=== PATIENT | female | born 1980 | race Caucasian/White ===

== ENCOUNTER 2017-02-09 12:31 | Emergency (ER) | payer MEDICAID, OTHER ==
[~2017-02-09] VITALS: Ht 167.6 cm; Wt 78.0 kg
[2017-02-09] MEDS ORDERED: IOHEXOL 350 MG/ML 150 ML (OMNIPAQUE 350) VIAL IV ONE (13:00)
[2017-02-09] MEDS ORDERED: NS 100 ML (IVPB) BAG IV ONE (13:00)
--- NOTE | 2017-02-09 13:05 | ED General ---
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 She's been incarcerated for approximately the last 4 months and [place], [place]. She most recently has been in [place] [facility]. She was initially treated with request for the PEs. She recently was switched to Coumadin and her labs were followed at the correction. She was on Coumadin 2.5 mg by mouth. She has not had a dose of her Coumadin since 02/07/17 and reports her last INR was 1.4. She is now released from correction and will [facility] staying [facility] [place]. She does not have a local health care provider at this time. Patient is anxious because of her past history of a PE and pneumonia about a possible recurrence. Timing/Duration: 12-24 Hours Severity: Mild Allergies and Home Medications Allergies Coded Allergies: cephalexin (Verified Allergy, Mild, 02/09/17) Home Medications Warfarin Sodium 5 Mg Tablet, 5 MG PO DAILY, #3 Ref 0 Prescribed by: LUCILA BERNSTEIN on 02/09/17 6166 Constitutional: no symptoms reported, see HPI EENTM: no symptoms reported, see HPI Respiratory: see HPI, short of breath, other (tightness, right sided upper lobes) Cardiovascular: no symptoms reported, see HPI Gastrointestinal: no symptoms reported, see HPI Genitourinary: no symptoms reported, see HPI : No (tubal ligation) Musculoskeletal: no symptoms reported, see HPI Skin: no symptoms reported, see HPI Psychiatric/Neurological: No Symptoms Reported, See HPI Hematologic/Lymphatic: No Symptoms Reported, See HPI Immunological/Allergic: no symptoms reported, see HPI All Other Systems Reviewed Negative Unless Noted: Yes Past Hjlitsm-Yzzgug-Ooznuk Hx Patient Social History Recent Foreign Travel: No Contact w/Someone Who Travel: No Reviewed Nursing Assessment Reviewed/Agree w Nursing PMH: Yes Physical Exam Vital Signs Vital Sign - Last 12Hours 02/09/17 13:00 Temp 98.1 Pulse 101 Resp 20 B/P (MAP) 155/90 Pulse Ox 99 O2 Delivery Room Air Capillary Refill : General Appearance: No Apparent Distress, WD/WN Eyes: Bilateral Eye EOMI, Bilateral Eye Normal Inspection, Bilateral Eye PERRL HEENT: PERRL/EOMI, TMs Normal, Normal ENT Inspection, Pharynx Normal Neck: Full Range of Motion, Normal Inspection, Non Tender Respiratory: Chest Non Tender, Lungs Clear, Normal Breath Sounds, No Respiratory Distress Cardiovascular: Regular Rate, Rhythm, No Edema, No Murmur, Normal Peripheral Pulses Gastrointestinal: Normal Bowel Sounds, No Organomegaly, Non Tender, Soft Extremity: Normal Capillary Refill, Normal Inspection, Normal Range of Motion, No Calf Tenderness, No Pedal Edema Neurologic/Psychiatric: Alert, Oriented x3, No Motor/Sensory Deficits, Normal Mood/Affect Skin: Normal Color, Warm/Dry Lymphatic: No Adenopathy Progress/Results/Core Measures Results/Orders Lab Results Laboratory Tests Test 02/09/17 13:07 02/09/17 14:17 Range/Units White Blood Count 8.0 4.3-11.0 10^3/uL Red Blood Count 4.43 4.35-5.85 10^6/uL Hemoglobin 13.5 11.5-16.0 G/DL Hematocrit 40 35-52 % Mean Corpuscular Volume 90 80-99 FL Mean Corpuscular Hemoglobin 31 25-34 PG Mean Corpuscular Hemoglobin Concent 34 32-36 G/DL Red Cell Distribution Width 15.9 H 10.0-14.5 % Platelet Count 218 130-400 10^3/uL Mean Platelet Volume 10.2 7.4-10.4 FL Neutrophils (%) (Auto) 68 42-75 % Lymphocytes (%) (Auto) 21 12-44 % Monocytes (%) (Auto) 10 0-12 % Eosinophils (%) (Auto) 1 0-10 % Basophils (%) (Auto) 0 0-10 % Neutrophils # (Auto) 5.4 1.8-7.8 X 10^3 Lymphocytes # (Auto) 1.7 1.0-4.0 X 10^3 Monocytes # (Auto) 0.8 0.0-1.0 X 10^3 Eosinophils # (Auto) 0.1 0.0-0.3 10^3/uL Basophils # (Auto) 0.0 0.0-0.1 10^3/uL Prothrombin Time 16.6 H 12.2-14.7 SEC INR Comment 1.4 0.8-1.4 Activated Partial Thromboplast Time 34 24-35 SEC Urine Color YELLOW Urine Clarity CLEAR Urine pH 7 5-9 Urine Specific [place] 1.010 L 1.016-1.022 Urine Protein 1+ H NEGATIVE Urine Glucose (UA) NEGATIVE NEGATIVE Urine Ketones NEGATIVE NEGATIVE Urine Nitrite NEGATIVE NEGATIVE Urine Bilirubin NEGATIVE NEGATIVE Urine Urobilinogen NORMAL NORMAL MG/DL Urine Leukocyte Esterase NEGATIVE NEGATIVE Urine RBC (Auto) 1+ H NEGATIVE Urine RBC NONE /HPF Urine WBC NONE /HPF Urine Squamous Epithelial Cells 5-10 /HPF Urine Crystals NONE /LPF Urine Bacteria NEGATIVE /HPF Urine Casts NONE /LPF Urine Mucus NEGATIVE /LPF Urine Culture Indicated NO Urine Opiates Screen NEGATIVE NEGATIVE Urine Oxycodone Screen NEGATIVE NEGATIVE Urine Methadone Screen NEGATIVE NEGATIVE Urine Propoxyphene Screen NEGATIVE NEGATIVE Urine Barbiturates Screen NEGATIVE NEGATIVE Ur Tricyclic Antidepressants Screen NEGATIVE NEGATIVE Urine Phencyclidine Screen NEGATIVE NEGATIVE Urine Amphetamines Screen NEGATIVE NEGATIVE Urine Methamphetamines Screen NEGATIVE NEGATIVE Urine Benzodiazepines Screen NEGATIVE NEGATIVE Urine Cocaine Screen NEGATIVE NEGATIVE Urine Cannabinoids Screen NEGATIVE NEGATIVE My Orders Orders - DAY,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 Cbc No Diff (02/09/17 12:53) Cbc With Automated Diff (02/09/17 12:53) Protime With Inr (02/09/17 12:53) Partial Thromboplastin Time (02/09/17 12:53) Ua Culture If Indicated (02/09/17 12:53) Ct Angio Chest W (02/09/17 12:53) Saline Lock/Iv-Start (02/09/17 12:53) Iohexol Injection (Omnipaque 350 Mg/Ml 1 (02/09/17 13:00) Ns (Ivpb) (Sodium Chloride 0.9% Ivpb Bag (02/09/17 13:00) Ekg Tracing (02/09/17 13:22) Warfarin Tablet (Coumadin Tablet) (02/09/17 13:45) Drug Screen Stat (Urine) (02/09/17 14:18) Medications Given in ED Current Medications Medications Dose Ordered Sig/Ayesha Route Start Time Stop Time Status Last Admin Dose Admin Iohexol 150 ml ONCE ONCE IV 02/09/17 13:00 02/09/17 13:02 DC 02/09/17 13:12 125 ML Sodium Chloride 100 ml ONCE ONCE IV 02/09/17 13:00 02/09/17 13:02 DC 02/09/17 13:12 80 ML Warfarin Sodium 5 mg ONCE ONCE PO 02/09/17 13:45 02/09/17 13:46 DC 02/09/17 14:12 5 MG Vital Signs/I&O Vital Sign - Last 12Hours 02/09/17 13:00 Temp 98.1 Pulse 101 Resp 20 B/P (MAP) 155/90 Pulse Ox 99 O2 Delivery Room Air Progress Note : Time: 12:45 Progress Note Initial evaluation completed, with the patient's past history and concerns a CT /angiography was ordered of the chest. Labs will be completed, CBC, urine drug screen, UA, CMP, PT, INR, PTT and EKG. [address] angiography with the patient explaining that everything was normal at this point with no evidence of acute PE or pneumonia. Her INR is 1.4 and PTT is 16.6. Recommended resuming Coumadin 5 mg by mouth for 3 days, and then having a lab draw at [facility]. She verbalized understanding and agreement with this treatment plan. UA and UDS negative. ECG Initial ECG Impression Date: Feb 09, 2017 Initial ECG Impression Time: 13:27 Initial ECG Rate: 83 Initial ECG Rhythm: Normal Sinus Initial ECG Intervals: Normal Initial ECG Intervals WI 184, QRS T 98, QT 384, QTc 452. [place] P 33, QRS 85, T 35. Initial ECG Comparisson: No Previous ECG Available Comment Reviewed with Dr. Brooke who agreed with interpretation. Diagnostic Imaging Diagonstic Imaging: CT Plain Films/CT/US/NM/MRI: chest Comments NAME: RICHA NORTON [facility] REC#: [id number] PT STATUS: REG ER : 1980 PHYSICIAN: LUCILA BERNSTEIN ADMIT DATE: 02/09/17/ER Draft Date of Exam:02/09/17 CT ANGIO CHEST W PROCEDURE: CT angiography of the chest with contrast. TECHNIQUE: Multiple contiguous axial images were obtained through the chest after uneventful bolus administration of intravenous contrast. Reconstructed CTA MIP acquisitions were also performed. INDICATION: Shortness of breath. COMPARISON: There are no previous studies available for comparison. Reportedly, the patient has had a pulmonary embolus in the past. There is no defect within the pulmonary arteries to indicate a pulmonary embolus. The aorta is not abnormally dilated and there is no sign of a dissection. The heart size is within normal limits. The lungs are clear. There is no evidence for failure, pneumonia or for a pleural effusion. There are a few strands of increased density in the right lower lobe. These may secondary to chronic atelectasis and/or scar summation. There is no mediastinal or hilar adenopathy. The thyroid gland is not enlarged. Bone windows show no sign of a fracture or of a destructive lesion. The sections through the upper abdomen fail to show any evidence for an acute abnormality. There is no obvious breast mass. IMPRESSION: There is no for evidence for an acute cardiopulmonary abnormality. In particular, there is no sign of a pulmonary embolus or of a dissection. Dictated on workstation # [id number] Dict: 02/09/17 1327 Trans: 02/09/17 1339 [facility] [id number] Interpreted by: KAT SEWELL MD Electronically signed by: Reviewed: Reviewed by Me Departure Impression Impression: Primary Impression: Anticoagulation management encounter Additional Impression: Chest tightness or pressure Disposition: HOME, SELF-CARE Condition: Improved Departure-Patient Inst. Decision time for Depature: 13:30 Referrals: NO,LOCAL PHYSICIAN (PCP/Family) Primary Care Physician Patient Instructions: Anti-Clotting Medicines: Warfarin (Coumadin), Pulmonary Embolism (Blood Clot in the Lungs) (DC) Add. Discharge Instructions: All discharge instructions reviewed with patient and/or family. Voiced understanding. Call [facility] [phone] on Saturday for a follow-up appointment and have labs checked. Take Coumadin 5 mg by mouth for 2 days and then follow-up on dosage based on labs. Return to emergency department for chest pain, difficulty breathing, chest tightness, or any other concerns. Scripts Warfarin Sodium (Coumadin) 5 Mg Tablet 5 MG PO DAILY, #3 TAB 0 Refills Prov: LUCILA BERNSTEIN 02/09/17 Work/School Note: Local Medical Staff Listing LUCILA BERNSTEIN Feb 09, 2017 13:05
[2017-02-09 13:16] LABS: BASOPHILS % (AUTO) 0 % (0-10); EOSINOPHILS # (AUTO) 0.1 10^3/uL (0.0-0.3); EOSINOPHILS % (AUTO) 1 % (0-10); LYMPHOCYTES # (AUTO) 1.7 X 10^3 (1.0-4.0); LYMPHOCYTES % (AUTO) 21 % (12-44); MEAN CORPUSCULAR HEMOGLOBIN 31 PG (25-34); MEAN CORPUSCULAR HGB CONC 34 G/DL (32-36); MEAN CORPUSCULAR VOLUME 90 FL (80-99); MEAN PLATELET VOLUME 10.2 FL (7.4-10.4); MONOCYTES # (AUTO) 0.8 X 10^3 (0.0-1.0); MONOCYTES % (AUTO) 10 % (0-12); NEUTROPHILS # (AUTO) 5.4 X 10^3 (1.8-7.8); NEUTROPHILS % (AUTO) 68 % (42-75); PLATELET COUNT 218 10^3/uL (130-400); RED BLOOD COUNT 4.43 10^6/uL (4.35-5.85); RED CELL DISTRIBUTION WIDTH 15.9 % (10.0-14.5)
[2017-02-09 13:26] LABS: INR 1.4 (0.8-1.4); PROTHROMBIN TIME PATIENT 16.6 SEC (12.2-14.7)
--- NOTE | 2017-02-09 13:40 | Diagnostic Imaging Report ---
PROCEDURE: CT angiography of the chest with contrast. TECHNIQUE: Multiple contiguous axial images were obtained through the chest after uneventful bolus administration of intravenous contrast. Reconstructed CTA MIP acquisitions were also performed. INDICATION: Shortness of breath. COMPARISON: There are no previous studies available for comparison. Reportedly, the patient has had a pulmonary embolus in the past. There is no defect within the pulmonary arteries to indicate a pulmonary embolus. The aorta is not abnormally dilated and there is no sign of a dissection. The heart size is within normal limits. The lungs are clear. There is no evidence for failure, pneumonia or for a pleural effusion. There are a few strands of increased density in the right lower lobe. These may secondary to chronic atelectasis and/or scar summation. There is no mediastinal or hilar adenopathy. The thyroid gland is not enlarged. Bone windows show no sign of a fracture or of a destructive lesion. The sections through the upper abdomen fail to show any evidence for an acute abnormality. There is no obvious breast mass. IMPRESSION: There is no for evidence for an acute cardiopulmonary abnormality. In particular, there is no sign of a pulmonary embolus or of a dissection. Dictated by: Dictated on workstation # [id number]
[2017-02-09] MEDS ORDERED: warFARin 5 MG (COUMADIN) TAB PO ONE (13:45)
[2017-02-09] MEDS ORDERED: WARF5TAB PO (13:56)
[2017-02-09 14:24] LABS: BILIRUBIN,URINE NEGATIVE (NEGATIVE); KETONES,URINE NEGATIVE (NEGATIVE); LEUKOCYTE ESTERASE ,URINE NEGATIVE (NEGATIVE); NITRITE,URINE NEGATIVE (NEGATIVE); PH,URINE 7 (5-9); PROTEIN,URINE 1+ (NEGATIVE); UROBILINOGEN,URINE NORMAL (NORMAL)
[2017-02-09 14:40] VITALS: BP 155/90
== END 2017-02-09 14:40 | disposition home or self-care (01) ==
LOC: ER 12:35
DX: Z51.81 Encounter for therapeutic drug level monitoring (principal); Z79.01 Long term (current) use of anticoagulants; Z86.711 Personal history of pulmonary embolism
CPT/HCPCS: 36415; 71275; 80306; 81000; 85025; 85610; 85730; 93005

== ENCOUNTER 2017-04-24 09:13 | Emergency (ER) | payer MEDICAID ==
[~2017-04-24] VITALS: Ht 167.6 cm; Wt 78.0 kg
[~2017-04-24 09:13] MED LIST: WARF5TAB PO
--- NOTE | 2017-04-24 09:28 | ED Abdominal Pain ---
General Chief Complaint: Abdominal/GI Problems Stated Complaint: ABD PAIN Source of Information: Patient History of Present Illness Time Seen By Provider: 09:25 Initial Comments PT ARRIVES VIA POV C/O HERNIA PAIN AND SWELLING SINCE 2029 LAST PM--BEGAN AT WORK AT [employer] LAST NIGHT C/O CRAMPING TO MID ABDOMEN AROUND UMBILICAL HERNIA--PAIN COMES AND GOES. NOTHING WORSENS OR IMPROVES PAIN C/O NAUSEA, NO VOMITING HAS HAD DIARRHEA X 2 THIS AM NO URINARY SYMPTOMS NO FEVER HAS HAD SIMILAR BEFORE AND STATES "THEY JUST PUSHED IT BACK IN" PT TOOK IBUPROFEN 800 MG THIS AM WITHOUT RELIEF PCP: [facility] Allergies and Home Medications Allergies Coded Allergies: cephalexin (Verified Allergy, Mild, 02/09/17) Home Medications Warfarin Sodium 5 Mg Tablet, 5 MG PO DAILY, #3 Ref 0 Prescribed by: LUCILA BERNSTEIN on 02/09/17 1356 Review of Systems Constitutional: no symptoms reported Respiratory: No Symptoms Reported Cardiovascular: No Symptoms Reported Gastrointestinal: See HPI, Abdominal Pain, Diarrhea, Nausea, Denies Vomiting Genitourinary: No Symptoms Reported Musculoskeletal: no symptoms reported Skin: no symptoms reported Psychiatric/Neurological: No Symptoms Reported Endocrine: No Symptoms Reported Hematologic/Lymphatic: No Symptoms Reported Past Rimcgwh-Ozgcqc-Lexvds Hx Patient Social History Recreational Drug Use: Yes Drug of Choice: HEROIN Smoking Status: Current Everyday Smoker Type Used: Cigarettes 2nd Hand Smoke Exposure: No Recent Foreign Travel: No Contact w/Someone Who Travel: No Recent Hopitalizations: No Seasonal Allergies Seasonal Allergies: No Surgeries HX Surgeries: Yes (SUREGERY FOR "OSTEOMYELYTIS OF SPINE"--HAS PLATES AND SCREWS IN SPINE ( ANTERIOR APPROACH)) Surgeries: Orthopedic, Tubal Ligation Respiratory Hx Respiratory Disorders: Yes (BILATERAL P.E.'S 09/2016--NOW ON ELIQUIS--PT DOES NOT KNOW SOURCE/CAUSE FOR P.E.'S ) Respiratory Disorders: Pulmonary Embolism Cardiovascular Hx Cardiac Disorders: Yes (BILATERAL P.E'S 09/2016) Neurological Hx Neurological Disorders: No Reproductive System : No 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 Genitourinary Hx Genitourinary Disorders: No Gastrointestinal Hx Gastrointestinal Disorders: No Musculoskeletal Hx Musculoskeletal Disorders: Yes (OSTEOMYELITIS OF SPINE) Endocrine Hx Endocrine Disorders: No HEENT HX ENT Disorders: No Cancer Hx Cancer: No Psychosocial Hx Psychiatric Problems: Yes (SUBSTANCE ABUSE) Integumentary HX Skin/Integumentary Disorder: No Blood Transfusions Hx Blood Disorders: No Adverse Reaction to a Blood Tr: No Physical Exam Vital Signs VS - Last 72 Hours, by Label 04/24/17 09:16 Temp 98.3 Pulse 110 Resp 18 B/P (MAP) 127/92 Capillary Refill : General Appearance: WD/WN, no apparent distress, other (CONSTANT MOVEMENTS OF BODY AND MOUTH, TALKS NON-STOP. PT DRINKING WATER ON ARRIVAL. ) HEENT: PERRL/EOMI Neck: normal inspection Respiratory: normal breath sounds, no respiratory distress, no accessory muscle use Cardiovascular: regular rate, rhythm, no murmur Gastrointestinal: normal bowel sounds, soft, no organomegaly, no pulsatile mass , No distended, No guarding, No rebound, tenderness (PERIUMBILICAL ), hernia ( SMALL REDUCIBLE UMBILICAL HERNIA--TENDER TO PALPATION), No mass Extremities: normal inspection Back: normal inspection Neurologic/Psychiatric: supervisor roving II-XII nml as tested, no motor/sensory deficits, alert, oriented x 3 Skin: normal color, warm/dry, other (MULTIPLE SCARS TO FACE, ARMS, CHEST AND ABDOMEN FROM "PICKING" ) Progress/Results/Core Measures Results/Orders Lab Results Laboratory Tests Test 04/24/17 09:26 04/24/17 10:25 Range/Units Urine Color YELLOW Urine Clarity CLEAR Urine pH 7 5-9 Urine Specific [place] 1.010 L 1.016-1.022 Urine Protein NEGATIVE NEGATIVE Urine Glucose (UA) NEGATIVE NEGATIVE Urine Ketones NEGATIVE NEGATIVE Urine Nitrite NEGATIVE NEGATIVE Urine Bilirubin NEGATIVE NEGATIVE Urine Urobilinogen NORMAL NORMAL MG/DL Urine Leukocyte Esterase 1+ H NEGATIVE Urine RBC (Auto) NEGATIVE NEGATIVE Urine RBC NONE /HPF Urine WBC 0-2 /HPF Urine Squamous Epithelial Cells 5-10 /HPF Urine Crystals NONE /LPF Urine Bacteria TRACE /HPF Urine Casts NONE /LPF Urine Mucus NEGATIVE /LPF Urine Culture Indicated NO Urine Opiates Screen NEGATIVE NEGATIVE Urine Oxycodone Screen NEGATIVE NEGATIVE Urine Methadone Screen NEGATIVE NEGATIVE Urine Propoxyphene Screen NEGATIVE NEGATIVE Urine Barbiturates Screen NEGATIVE NEGATIVE Ur Tricyclic Antidepressants Screen NEGATIVE NEGATIVE Urine Phencyclidine Screen NEGATIVE NEGATIVE Urine Amphetamines Screen NEGATIVE NEGATIVE Urine Methamphetamines Screen NEGATIVE NEGATIVE Urine Benzodiazepines Screen NEGATIVE NEGATIVE Urine Cocaine Screen NEGATIVE NEGATIVE Urine Cannabinoids Screen NEGATIVE NEGATIVE White Blood Count 7.1 4.3-11.0 10^3/uL Red Blood Count 4.49 4.35-5.85 10^6/uL Hemoglobin 14.5 11.5-16.0 G/DL Hematocrit 42 35-52 % Mean Corpuscular Volume 94 80-99 FL Mean Corpuscular Hemoglobin 32 25-34 PG Mean Corpuscular Hemoglobin Concent 35 32-36 G/DL Red Cell Distribution Width 14.3 10.0-14.5 % Platelet Count 190 130-400 10^3/uL Mean Platelet Volume 10.3 7.4-10.4 FL Neutrophils (%) (Auto) 57 42-75 % Lymphocytes (%) (Auto) 28 12-44 % Monocytes (%) (Auto) 14 H 0-12 % Eosinophils (%) (Auto) 1 0-10 % Basophils (%) (Auto) 0 0-10 % Neutrophils # (Auto) 4.1 1.8-7.8 X 10^3 Lymphocytes # (Auto) 2.0 1.0-4.0 X 10^3 Monocytes # (Auto) 1.0 0.0-1.0 X 10^3 Eosinophils # (Auto) 0.1 0.0-0.3 10^3/uL Basophils # (Auto) 0.0 0.0-0.1 10^3/uL Prothrombin Time 12.2 12.2-14.7 SEC INR Comment 0.9 0.8-1.4 Activated Partial Thromboplast Time 29 24-35 SEC Sodium Level 138 135-145 MMOL/L Potassium Level 3.8 3.6-5.0 MMOL/L Chloride Level 109 H 98-107 MMOL/L Carbon Dioxide Level 19 L 21-32 MMOL/L Anion Gap 10 5-14 MMOL/L Blood Urea Nitrogen 16 7-18 MG/DL Creatinine 0.75 0.60-1.30 MG/DL Estimat Glomerular Filtration Rate > 60 BUN/Creatinine Ratio 21 H 0-20 Glucose Level 95 70-105 MG/DL Calcium Level 8.9 8.5-10.1 MG/DL Total Bilirubin 0.4 0.1-1.0 MG/DL Aspartate Amino Transf (AST/SGOT) 46 H 5-34 U/L Alanine Aminotransferase (ALT/SGPT) 64 H 0-55 U/L Alkaline Phosphatase 100 40-136 U/L Total Protein 7.0 6.4-8.2 GM/DL Albumin 3.5 3.2-4.5 GM/DL Amylase Level 39 25-125 U/L Lipase 31 8-78 U/L Serum Test, Qualitative NEGATIVE NEGATIVE My Orders Orders - OREN PARKERA Alessandro DO Saline Lock/Iv-Start (04/24/17 09:24) Amylase (04/24/17 09:24) Cbc With Automated Diff (04/24/17 09:24) Comprehensive Metabolic Panel (04/24/17 09:24) Hcg,Qualitative Serum (04/24/17 09:24) Lipase (04/24/17 09:24) Ua Culture If Indicated (04/24/17 09:24) Acute Abd Series (04/24/17 09:24) Protime With Inr (04/24/17 09:25) Partial Thromboplastin Time (04/24/17 09:25) Drug Screen Stat (Urine) (04/24/17 09:34) Iohexol Injection (Omnipaque 350 Mg/Ml 1 (04/24/17 09:45) Sodium Chloride Flush (Catheter Flush Sy (04/24/17 09:45) Ns (Ivpb) (Sodium Chloride 0.9% Ivpb Bag (04/24/17 09:45) Ct Abdomen/Pelvis Wo (04/24/17 ) Medications Given in ED Current Medications Medications Dose Ordered Sig/Ayesha Route Start Time Stop Time Status Last Admin Dose Admin Iohexol 100 ml ONCE ONCE IV 04/24/17 09:45 04/24/17 09:54 DC 04/24/17 10:55 100 ML Sodium Chloride 10 ml NEEDED PRN IV 04/24/17 09:45 04/24/17 10:55 10 ML Sodium Chloride 100 ml ONCE ONCE IV 04/24/17 09:45 04/24/17 09:54 DC 04/24/17 10:55 80 ML Vital Signs/I&O Vital Sign - Last 12Hours 04/24/17 09:16 Temp 98.3 Pulse 110 Resp 18 B/P (MAP) 127/[address] ABDOMEN/PELVIS--VENTRAL AND PERIUMBILICAL HERNIAS, ONE CONTAINING BOWEL LOOP , NO OBSTRUCTION OR STRANGULATION ACUTE ABDOMEN XRAYS--NO ACUTE PROCESS PER RADIOLOGIST REPORTS @ 1136 Reviewed: Reviewed by Me Departure Impression Impression: Primary Impression: Umbilical hernia Disposition: HOME, SELF-CARE Condition: Stable Departure-Patient Inst. Referrals: [facility] (PCP/Family) Primary Care Physician NAVIN HARPER DO Patient Instructions: Abdominal Hernia (DC), Umbilical Hernia, Adult Add. Discharge Instructions: LOTS OF FLUIDS--WATER, BROTH, JELLO, GATORADE FOLLOW UP WITH DR. HARPER, OR SURGEON OF CHOICE FOR FURTHER CARE All discharge instructions reviewed with patient and/or family. Voiced understanding. Scripts Ondansetron (Zofran Odt) 4 Mg Tab.rapdis 4 MG PO Q4H for Nausea/Vomiting, #10 TAB Prov: RYAN PARKER DO 04/24/17 Dicyclomine HCl (Bentyl) 10 Mg Capsule 10 MG PO Q6H Y for ABDOMINAL PAIN, #15 CAP Prov: RYAN PAKRER DO 04/24/17 RYAN PARKER DO Apr 24, 2017 09:28
[2017-04-24] MEDS ORDERED: CATHETER FLUSH 10 ML SYR IV PRN (09:45)
[2017-04-24] MEDS ORDERED: IOHEXOL 350 MG/ML 100 ML (OMNIPAQUE 350) VIAL IV ONE (09:45)
[2017-04-24] MEDS ORDERED: NS 100 ML (IVPB) BAG IV ONE (09:45)
[2017-04-24 09:48] LABS: BILIRUBIN,URINE NEGATIVE (NEGATIVE); KETONES,URINE NEGATIVE (NEGATIVE); LEUKOCYTE ESTERASE ,URINE 1+ (NEGATIVE); NITRITE,URINE NEGATIVE (NEGATIVE); PH,URINE 7 (5-9); PROTEIN,URINE NEGATIVE (NEGATIVE); UROBILINOGEN,URINE NORMAL (NORMAL)
[2017-04-24 10:06] LABS: WBC,URINE 0-2 /HPF
[2017-04-24 10:34] LABS: BASOPHILS % (AUTO) 0 % (0-10); EOSINOPHILS # (AUTO) 0.1 10^3/uL (0.0-0.3); EOSINOPHILS % (AUTO) 1 % (0-10); LYMPHOCYTES % (AUTO) 28 % (12-44); MEAN CORPUSCULAR HEMOGLOBIN 32 PG (25-34); MEAN CORPUSCULAR HGB CONC 35 G/DL (32-36); MEAN CORPUSCULAR VOLUME 94 FL (80-99); MEAN PLATELET VOLUME 10.3 FL (7.4-10.4); MONOCYTES % (AUTO) 14 % (0-12); NEUTROPHILS # (AUTO) 4.1 X 10^3 (1.8-7.8); NEUTROPHILS % (AUTO) 57 % (42-75); PLATELET COUNT 190 10^3/uL (130-400); RED BLOOD COUNT 4.49 10^6/uL (4.35-5.85); RED CELL DISTRIBUTION WIDTH 14.3 % (10.0-14.5); WHITE BLOOD COUNT 7.1 10^3/uL (4.3-11.0)
[2017-04-24 10:54] LABS: ALANINE AMINOTRANSFERASE 64 U/L (0-55); ALBUMIN 3.5 GM/DL (3.2-4.5); AMYLASE 39 U/L (25-125); ANION GAP 10 MMOL/L (5-14); ASPARTATE AMINO TRANSFERASE 46 U/L (5-34); BILIRUBIN,TOTAL 0.4 MG/DL (0.1-1.0); BLOOD UREA NITROGEN 16 MG/DL (7-18); BUN/CREATININE RATIO 21 (0-20); CALCIUM 8.9 MG/DL (8.5-10.1); CARBON DIOXIDE 19 MMOL/L (21-32); CHLORIDE 109 MMOL/L (98-107); CREATININE SERUM 0.75 MG/DL (0.60-1.30); GFR ESTIMATED > 60; GLUCOSE 95 MG/DL (70-105); LIPASE 31 U/L (8-78); POTASSIUM 3.8 MMOL/L (3.6-5.0); SODIUM 138 MMOL/L (135-145)
[2017-04-24 11:00] LABS: INR 0.9 (0.8-1.4); PROTHROMBIN TIME PATIENT 12.2 SEC (12.2-14.7)
--- NOTE | 2017-04-24 11:17 | Diagnostic Imaging Report ---
INDICATION: Abdominal pain midabdomen. PA chest, supine and upright abdominal images were obtained. There are postop changes from fusion of the spine from L4 to S1. There are some surgical george in the left lower abdomen. Bowel gas pattern is normal. There are no pathologic masses or calcifications. There is no intraperitoneal free air. Lungs are clear. IMPRESSION: No acute abnormalities in the abdomen. Dictated by: Dictated on workstation # [id number]
--- NOTE | 2017-04-24 11:31 | Diagnostic Imaging Report ---
PROCEDURE: CT abdomen and pelvis without contrast. TECHNIQUE: Multiple contiguous axial images were obtained through the abdomen and pelvis without the use of intravenous contrast. INDICATION: Abdominal pain and tenderness. This study was performed without intravenous contrast due to lack of IV access. FINDINGS: The lung bases demonstrate minimal bibasilar atelectasis. The liver, the spleen, the adrenal glands, and the pancreas appear grossly unremarkable for an unenhanced exam. There are no calcified gallstones. The kidneys demonstrate no hydronephrosis. No urinary tract stones are identified. Calcifications in the left side of the pelvis are likely related to phleboliths. The uterus and adnexa demonstrate no definite abnormality. Slight fullness in the left adnexa is probably related to ovarian follicles. There is no significant free fluid or fluid collection in the abdomen or pelvis. The appendix is not clearly seen through its entire course with a tubular structure probably representing part of the normal appendix seen in the right lower quadrant. No fluid collection or abscess. There are periumbilical and supraumbilical ventral hernias containing fat from the omentum in the supraumbilical hernia, and the left periumbilical hernia contains a small bowel loop without obstruction. The osseous structures demonstrate fusion changes involving L4 to S1 levels. IMPRESSION: Periumbilical and supraumbilical ventral hernias. One of the hernias contain a small bowel loop without obstruction or CT evidence of strangulation. Dictated by: Dictated on workstation # [id number]
[2017-04-24] MEDS ORDERED: DICY10CA59 PO (11:41)
[2017-04-24] MEDS ORDERED: ONDA4TAB8 PO (11:41)
[2017-04-24] MEDS ORDERED: KETOROLAC 60 MG/2 ML VIAL IM ONE (11:45)
[2017-04-24 12:10] VITALS: BP 100/84
== END 2017-04-24 12:10 | disposition home or self-care (01) ==
LOC: EDUNIT# 09:13 → ER 09:17
DX: K42.9 Umbilical hernia without obstruction or gangrene (principal); F17.210 Nicotine dependence, cigarettes, uncomplicated; Z79.01 Long term (current) use of anticoagulants; Z98.51 Tubal ligation status; Z86.711 Personal history of pulmonary embolism; Z32.02 Encounter for pregnancy test, result negative
CPT/HCPCS: 36415; 74022; 74176; 80053; 80306; 81000; 82150; 83690; 84703; 85025; 85610; 85730; 96372

== ENCOUNTER 2017-11-13 16:25 | Observation (INO) | payer SELFPAY ==
[~2017-11-13] VITALS: Ht 167.6 cm; Wt 76.0 kg
[~2017-11-13 16:25] MED LIST changes: +DICY10CA59 PO; +ONDA4TAB8 PO
[2017-11-13] MEDS ORDERED: KETOROLAC 30 MG/ML VIAL IVP STA (18:01)
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
[2017-11-13] MEDS ORDERED: CEFEPIME INJECTION 2,000 MG in NS (IVPB) 50 ML IV ONE (18:15)
[2017-11-13] MEDS ORDERED: ONDANSETRON 4 MG/2 ML (SDV) Z0FRAN IVP ONE (18:15)
[2017-11-13 18:21] LABS: CLARITY,URINE SLIGHTLY CLOUDY; COLOR,URINE AMBER; GLUCOSE, URINE (UA) NEGATIVE (NEGATIVE); KETONES,URINE 1+ (NEGATIVE); LEUKOCYTE ESTERASE ,URINE 2+ (NEGATIVE); NITRITE,URINE NEGATIVE (NEGATIVE); PH,URINE 6 (5-9); PROTEIN,URINE 2+ (NEGATIVE); UROBILINOGEN,URINE 8 MG/DL (NORMAL)
[2017-11-13 18:31] LABS: BILIRUBIN,URINE 2+ (NEGATIVE)
[2017-11-13 18:32] LABS: BACTERIA,URINE FEW /HPF
--- NOTE | 2017-11-13 19:11 | Diagnostic Imaging Report ---
INDICATION: Chest pain. COMPARISON: 04/24/2017. EXAMINATION: Single view of the chest was obtained. FINDINGS: Clear lungs, bilaterally. The heart is normal. No pneumothorax. The osseous structures are normal. IMPRESSION: Negative chest. Dictated by: Dictated on workstation # [id number]
[2017-11-13] MEDS ORDERED: LACTATED RINGERS 1,000 ML IV ONE (19:24)
[2017-11-13] MEDS ORDERED: fentaNYL INJECTION 100 MCG/2 ML AMP IVP ONE (19:30)
[2017-11-13 21:00] LABS: BASOPHILS % (AUTO) 0 % (0-10); EOSINOPHILS # (AUTO) 0.1 10^3/uL (0.0-0.3); EOSINOPHILS % (AUTO) 1 % (0-10); HEMATOCRIT 40 % (35-52); HEMOGLOBIN 13.9 G/DL (11.5-16.0); LYMPHOCYTES # (AUTO) 1.8 X 10^3 (1.0-4.0); LYMPHOCYTES % (AUTO) 16 % (12-44); MEAN CORPUSCULAR HEMOGLOBIN 34 PG (25-34); MEAN CORPUSCULAR HGB CONC 35 G/DL (32-36); MEAN CORPUSCULAR VOLUME 96 FL (80-99); MEAN PLATELET VOLUME 10.8 FL (7.4-10.4); MONOCYTES # (AUTO) 1.1 X 10^3 (0.0-1.0); MONOCYTES % (AUTO) 10 % (0-12); NEUTROPHILS # (AUTO) 8.1 X 10^3 (1.8-7.8); NEUTROPHILS % (AUTO) 73 % (42-75); PLATELET COUNT 199 10^3/uL (130-400); RED BLOOD COUNT 4.13 10^6/uL (4.35-5.85); RED CELL DISTRIBUTION WIDTH 13.7 % (10.0-14.5); WHITE BLOOD COUNT 11.1 10^3/uL (4.3-11.0)
[2017-11-13 21:03] LABS: INR 0.9 (0.8-1.4); PROTHROMBIN TIME PATIENT 12.3 SEC (12.2-14.7)
[2017-11-13 21:04] LABS: ALANINE AMINOTRANSFERASE 24 U/L (0-55); ALBUMIN 3.4 GM/DL (3.2-4.5); ALKALINE PHOSPHATASE 68 U/L (40-136); BILIRUBIN,TOTAL 0.7 MG/DL (0.1-1.0); BUN/CREATININE RATIO 18; CALCIUM 8.5 MG/DL (8.5-10.1); CARBON DIOXIDE 21 MMOL/L (21-32); CHLORIDE 103 MMOL/L (98-107); CREATININE SERUM 0.65 MG/DL (0.60-1.30); GFR ESTIMATED > 60; GLUCOSE 89 MG/DL (70-105); POTASSIUM 3.3 MMOL/L (3.6-5.0); SODIUM 138 MMOL/L (135-145); TOTAL PROTEIN 6.7 GM/DL (6.4-8.2)
[2017-11-13 22:56] VITALS: BP 107/61
[2017-11-13] MEDS ORDERED: NS W/KCL 20 MEQ/L 1,000 ML IV ONE (22:57)
[2017-11-13] MEDS ORDERED: HYDROcodone/APAP 5 MG/325 MG (LORTAB) TAB ONE (22:57)
[2017-11-13] MEDS: NS W/KCL 20 MEQ/L 1,000 ML IV SCH (23:05)
[2017-11-13] MEDS ORDERED: NICOTINE 14 MG (NICODERM) PATCH TD ONE (23:19)
[2017-11-13] MEDS ORDERED: ONDANSETRON 4 MG/2 ML (SDV) Z0FRAN IV PRN (23:45)
[2017-11-13] MEDS ORDERED: KETOROLAC 30 MG/ML VIAL IVP PRN (23:45)
[2017-11-14] MEDS: HYDROcodone/APAP 5 MG/325 MG (LORTAB) TAB PO PRN ×2 (03:42→13:26)
[2017-11-14 04:00] VITALS: BP 115/74
[2017-11-14] MEDS: NS W/KCL 20 MEQ/L 1,000 ML IV SCH ×2 (05:17→13:25)
[2017-11-14] MEDS: CEFEPIME INJECTION 1,000 MG in NS (IVPB) 50 ML IV SCH ×2 (05:17→13:25)
[2017-11-14] MEDS ORDERED: CATHETER FLUSH 10 ML SYR IV PRN (07:00)
[2017-11-14] MEDS ORDERED: INFLUENZA TRIvalent 2017-2018 0.5 ML/45 MCG SYR IM ONE (07:00)
[2017-11-14 07:53] LABS: BASOPHILS % (AUTO) 0 % (0-10); EOSINOPHILS # (AUTO) 0.2 10^3/uL (0.0-0.3); EOSINOPHILS % (AUTO) 3 % (0-10); HEMATOCRIT 37 % (35-52); HEMOGLOBIN 12.7 G/DL (11.5-16.0); LYMPHOCYTES # (AUTO) 1.3 X 10^3 (1.0-4.0); LYMPHOCYTES % (AUTO) 19 % (12-44); MEAN CORPUSCULAR HEMOGLOBIN 33 PG (25-34); MEAN CORPUSCULAR HGB CONC 34 G/DL (32-36); MEAN CORPUSCULAR VOLUME 97 FL (80-99); MEAN PLATELET VOLUME 10.8 FL (7.4-10.4); MONOCYTES # (AUTO) 0.5 X 10^3 (0.0-1.0); MONOCYTES % (AUTO) 7 % (0-12); NEUTROPHILS # (AUTO) 5.1 X 10^3 (1.8-7.8); NEUTROPHILS % (AUTO) 71 % (42-75); PLATELET COUNT 162 10^3/uL (130-400); RED BLOOD COUNT 3.81 10^6/uL (4.35-5.85); RED CELL DISTRIBUTION WIDTH 13.8 % (10.0-14.5); WHITE BLOOD COUNT 7.2 10^3/uL (4.3-11.0)
[2017-11-14 07:59] VITALS: BP 90/54
[2017-11-14 08:13] LABS: ALANINE AMINOTRANSFERASE 23 U/L (0-55); ALBUMIN 2.9 GM/DL (3.2-4.5); ALKALINE PHOSPHATASE 57 U/L (40-136); BILIRUBIN,TOTAL 0.5 MG/DL (0.1-1.0); BUN/CREATININE RATIO 23; CARBON DIOXIDE 22 MMOL/L (21-32); CHLORIDE 109 MMOL/L (98-107); CREATININE SERUM 0.71 MG/DL (0.60-1.30); GFR ESTIMATED > 60; GLUCOSE 155 MG/DL (70-105); POTASSIUM 3.7 MMOL/L (3.6-5.0); SODIUM 142 MMOL/L (135-145); TOTAL PROTEIN 5.8 GM/DL (6.4-8.2)
[2017-11-14] MEDS ORDERED: PREN-102 PO (08:41)
[2017-11-14] MEDS ORDERED: TRAZ-28 PO (08:41)
[2017-11-14] MEDS ORDERED: APIX5TAB PO ×2 (08:41→14:33)
[2017-11-14] MEDS ORDERED: GABA-488 PO (08:41)
[2017-11-14] MEDS ORDERED: CITA20TA12 PO (08:41)
[2017-11-14] MEDS ORDERED: NICOTINE 14 MG (NICODERM) PATCH TD SCH (09:00)
[2017-11-14 12:00] VITALS: BP 102/57
--- NOTE | 2017-11-14 13:10 | Diagnostic Imaging Report ---
EXAMINATION: Left fingers. INDICATION: Redness and swelling. FINDINGS: An AP view of the hand and two views of the left second digit were obtained. There are no prior studies available for comparison. There is no fracture, dislocation, or acute bony abnormality evident. There does seem to be mild generalized soft tissue edema about the phalanges of the second digit however. There is no radiopaque foreign body identified. IMPRESSION: 1. There is no evidence for an acute bony abnormality. 2. There is generalized soft tissue edema about the second digit. There is no radiopaque foreign body identified however. Dictated by: Dictated on workstation # [id number]
[2017-11-14] MEDS ORDERED: CEFD300C3 PO (14:33)
--- NOTE | 2017-11-14 14:36 | Discharge Instructions ---
Discharge [facility] Discharge Medications New, Converted or Re-Newed RX: Transmitted to Pharmacy New Medications: Cefdinir (Cefdinir) 300 Mg Capsule 300 MG PO BID, #20 CAP 0 Refills Continued Medications: Apixaban (Eliquis) 5 Mg Tablet 5 MG PO DAILY, #60 TAB 0 Refills (This prescription has been renewed) LAST RECEIVED #56 SAMPLES 17 Citalopram Hydrobromide (Celexa) 20 Mg Tablet 20 MG PO DAILY, TAB Gabapentin (Gabapentin) 300 Mg Capsule 300 MG PO TID PRN for NERVE PAIN, CAP LAST GIVEN #90 SAMPLES 08-15-17 Vits #93/Iron Fum/FA ( Formula Tablet) 1 Each Tablet 1 TAB PO DAILY, TAB Trazodone HCl (Trazodone HCl) 50 Mg Tablet 50-150 MG PO HS, TAB LAST GIVEN #90 SAMPLES 08-15-17 TAKES 1-3 (50MG) TABLETS Patient Instructions Goal/Follow Up Appt: Follow up with Dr. Marin on 11/21 at 1:40 pm. Follow up with [facility] as directed. Return to [facility] For: Fever, spreading redness, inability to keep down antibiotics Activity & Diet Discharge Diet: Regular Diet Copy Copies To 1: BALDOMERO MARIN MD, BETHANY N MD Nov 14, 2017 14:35
[2017-11-14 16:00] VITALS: BP 107/74
[2017-11-14 16:40] VITALS: BP 107/74
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
== END 2017-11-14 16:40 | disposition home or self-care (01) ==
LOC: EDUNIT# 16:25 → ER 16:26 → 4TH 22:05
PROVIDERS: ADMIT Family Medicine; ATTEND Family Medicine
DX: L03.012 Cellulitis of left finger (principal); F15.10 Other stimulant abuse, uncomplicated; F17.210 Nicotine dependence, cigarettes, uncomplicated; B18.2 Chronic viral hepatitis C
CPT/HCPCS: 36415; 71045; 73140; 80053; 81000; 83605; 84703; 85025; 85610; 85730; 86141; 87040; 87070; 87088; 87205; 99284; G0378

== ENCOUNTER 2017-11-20 19:40 | Emergency (ER) | payer SELFPAY ==
[~2017-11-20] VITALS: Ht 167.6 cm; Wt 79.8 kg
[~2017-11-20 19:40] MED LIST changes: +APIX5TAB PO; +CEFD300C3 PO; +CITA20TA12 PO; +GABA-488 PO; +PREN-102 PO; +TRAZ-28 PO
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
[2017-11-20] MEDS ORDERED: RX-TRIMETH/SULFA. 160-800 MG (BACTRIM DS) TAB PPK#2 PO STA (21:20)
[2017-11-20] MEDS ORDERED: IBUPROFEN SUSP 100MG/5ML (MOTRIN) UDC PO ONE (21:30)
[2017-11-20] MEDS ORDERED: LIDOCAINE 1% INJ 50 ML (XYLOCAINE) VIAL IJ ONE (21:30)
[2017-11-20] MEDS ORDERED: SULF1TAB35 PO (21:36)
[2017-11-20] MEDS ORDERED: IBUPROFEN 800 MG (MOTRIN) TAB PO STA (21:48)
[2017-11-20] MEDS: IBUPROFEN 800 MG (MOTRIN) TAB PO ONE ×2 (21:51→23:08)
[2017-11-20 23:16] VITALS: BP 124/95
== END 2017-11-20 23:16 | disposition home or self-care (01) ==
LOC: EDUNIT# 19:40 → ER 19:41
DX: L02.414 Cutaneous abscess of left upper limb (principal); L02.511 Cutaneous abscess of right hand; L03.012 Cellulitis of left finger; F12.10 Cannabis abuse, uncomplicated; F17.210 Nicotine dependence, cigarettes, uncomplicated; Z79.01 Long term (current) use of anticoagulants; Z98.51 Tubal ligation status; Z86.711 Personal history of pulmonary embolism; Z87.19 Personal history of other diseases of the digestive system
CPT/HCPCS: 87070; 87205

== ENCOUNTER 2019-07-16 03:22 | Emergency (ER) | payer SELFPAY ==
[~2019-07-16] VITALS: Ht 167.6 cm; Wt 80.3 kg
[~2019-07-16 03:22] MED LIST changes: +SULF1TAB35 PO; +TRAZ-222 PO; -TRAZ-28 PO
[2019-07-16] MEDS ORDERED: SULF1TAB35 PO (04:12)
--- NOTE | 2019-07-16 04:12 | ED Integumentary General ---
General Chief Complaint: Skin/Wound Problems Stated Complaint: ABSCESS ON RT THIGH Source: patient Exam Limitations: no limitations History of Present Illness Date Seen by Provider: Jul 16, 2019 Time Seen by Provider: 03:48 Initial Comments Patient presents to ER by private conveyance with chief complaint that about 2 days ago showed some redness swelling and heat consistent with an abscess in her right thigh/groin. 4 days ago she was injecting in the site methamphetamines. No fevers chills chest pain shortness of breath. She does have a history of pulmonary embolisms on Coumadin. Allergies and Home Medications Allergies Coded Allergies: cephalexin (Verified Allergy, Mild, 02/09/17) Home Medications Apixaban 5 Mg Tablet, 5 MG PO DAILY LAST RECEIVED #56 SAMPLES 06-14-17 Prescribed by: BALDOMERO MAN on 11/14/17 1433 Cefdinir 300 Mg Capsule, 300 MG PO BID Prescribed by: BALDOMERO MAN on 11/14/17 1433 Citalopram Hydrobromide 20 Mg Tablet, 20 MG PO DAILY, (Reported) Gabapentin 300 Mg Capsule, 300 MG PO TID PRN for NERVE PAIN, (Reported) LAST GIVEN #90 SAMPLES 08-15-17 Vits #93/Iron Fum/FA 1 Each Tablet, 1 TAB PO DAILY, (Reported) Sulfamethoxazole/Trimethoprim 1 Each Tablet, 1 EACH PO BID Prescribed by: LILI STANLEY on 11/20/17 2136 Sulfamethoxazole/Trimethoprim 1 Each Tablet, 1 EACH PO BID Prescribed by: DEREK MORRISON on 07/16/19 0412 Trazodone HCl 50 Mg Tablet, 50-150 MG PO HS, (Reported) LAST GIVEN #90 SAMPLES 08-15-17 TAKES 1-3 (50MG) TABLETS Patient Home Medication List Home Medication List Reviewed: Yes Review of Systems Review of Systems Constitutional: No chills, No diaphoresis EENTM: No ear discharge, No hearing loss Respiratory: No cough, No short of breath Cardiovascular: No chest pain, No edema Gastrointestinal: No abdominal pain, No constipation, No diarrhea Genitourinary: No discharge, No dysuria Past Eplumvv-Mkuewo-Ghhupw Hx Patient Social History Alcohol Use: Past History Recreational Drug Use: Yes Drug of Choice: HEROIN, IV Meth MJ Smoking Status: Current Everyday Smoker Type Used: Cigarettes 2nd Hand Smoke Exposure: No Recent Foreign Travel: No Contact w/Someone Who Travel: No Recent Hopitalizations: No Immunizations Up To Date Tetanus Booster (TDap): Unknown PED Vaccines UTD: Yes Seasonal Allergies Seasonal Allergies: No Past Medical History Surgeries: Yes (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 No Pertinent Family Hx Physical Exam Vital Signs Capillary Refill : General Appearance: WD/WN, no apparent distress HEENT: PERRL/EOMI, normal ENT inspection, pharynx normal Neck: full range of motion, normal inspection Cardiovascular: normal peripheral pulses, regular rate, rhythm Respiratory: no respiratory distress, no accessory muscle use Gastrointestinal: normal bowel sounds, non tender Neurologic/Psychiatric: alert, normal mood/affect, oriented x 3 Skin: other (erythema, warmth, tenderness, induration over her right anterior thigh extending into the groin.) Procedures/Interventions I&D : Site: right anterior thigh Blade Size: 11 I & D Procedure: betadine prep (and chlorhexidine) Progress Skin overlying the right anterior thigh was infiltrated with 6 cc of lidocaine 1% without epinephrine. Thoroughly cleaned with Betadine and chlorhexidine prior to that. We then used an 11 blade to make a cross ramírez one centimeters incision and drained approximately 15-30 cc of thin, foul malodorous purulent discharge. Using a cotton-tipped applicator we broke up loculations and then flushed the wound out thoroughly using 150 cc of sterile saline. Wound was lightly dressed with gauze and left drain. Patient tolerated procedure well. Progress/Results/Core Measures Results/Orders My Orders Orders - DEREK MORRISON Lidocaine 1% Inj 20 Ml (Xylocaine 1% Inj (07/16/19 04:15) Ketorolac Injection (Toradol Injection) (07/16/19 04:15) Medications Given in ED Current Medications Medications Dose Ordered Sig/Ayesha Route Start Time Stop Time Status Last Admin Dose Admin Ketorolac Tromethamine 60 mg ONCE ONCE IM 07/16/19 04:15 07/16/19 04:17 DC 07/16/19 04:15 60 MG Lidocaine HCl 20 ml ONCE ONCE INJ 07/16/19 04:15 07/16/19 04:17 DC 07/16/19 04:17 20 ML Progress Progress Note : Time: 04:09 Progress Note Bedside ultrasound reveals modest amount of fluid collection deep to the induration anterior portion of the thigh. We'll do incise and drain and put her on Bactrim. Departure Impression Primary Impression: Abscess Disposition: 01 HOME, SELF-CARE Condition: Improved Departure-Patient Inst. Decision time for Depature: 04:35 Referrals: [facility] (PCP/Family) Primary Care Physician Patient Instructions: Abscess Incision and Drainage (DC) Add. Discharge Instructions: Keep the wound clean with regular soap and water. Change the dressing daily or as often as it becomes soiled. Take the Bactrim one tablet twice a day for the next 7 days. Follow-up with primary care for continued management. All discharge instructions reviewed with patient and/or family. Voiced unders tanding. Scripts Sulfamethoxazole/Trimethoprim (Bactrim Ds Tablet) 1 Each Tablet 1 EACH PO BID for 7 Days, #14 TAB 0 Refills Prov: DEREK MORRISON 07/16/19 DEREK MORRISON Jul 16, 2019 04:12
[2019-07-16] MEDS ORDERED: KETOROLAC 30 MG/ML VIAL IM ONE (04:15)
[2019-07-16] MEDS ORDERED: LIDOCAINE 1% INJ 20 ML 20 ML VIAL INJ ONE (04:15)
[2019-07-16 04:40] VITALS: BP 122/80
== END 2019-07-16 04:42 | disposition home or self-care (01) ==
LOC: EDUNIT# 03:22 → ER 03:25
DX: L02.415 Cutaneous abscess of right lower limb (principal); F17.210 Nicotine dependence, cigarettes, uncomplicated; Z86.711 Personal history of pulmonary embolism; Z79.01 Long term (current) use of anticoagulants; Z88.1 Allergy status to other antibiotic agents; Z98.51 Tubal ligation status
CPT/HCPCS: 10060; 96372

== ENCOUNTER 2020-07-03 07:15 | Emergency (ER) | payer SELFPAY ==
[~2020-07-03] VITALS: Ht 165.1 cm; Wt 61.2 kg
[~2020-07-03 07:15] MED LIST changes: -TRAZ-222 PO; +TRZ50T PO; -WARF5TAB PO; +WARF5TAB2 PO
--- NOTE | 2020-07-03 07:57 | ED Integumentary General ---
General Chief Complaint: Skin/Wound Problems Stated Complaint: L ARM SWELLING Source: patient Exam Limitations: no limitations History of Present Illness Date Seen by Provider: Jul 03, 2020 Time Seen by Provider: 07:14 Initial Comments Patient presents ER by private conveyance with chief complaint of swelling redness erythema and draining purulence on her right upper arm and left elbow. She says she is using IV methamphetamines with her last use being 4 days ago. He says he knows this started about a day ago and has progressed to a lot of swelling pain warm and redness. She is not having a fever nausea vomiting chills. Does not follow with a doctor. Allergies and Home Medications Allergies Coded Allergies: cephalexin (Verified Allergy, Mild, 02/09/17) Home Medications Apixaban 5 Mg Tablet, 5 MG PO DAILY LAST RECEIVED #56 SAMPLES 06-14-17 Prescribed by: BALDOMERO MAN on 11/14/17 1433 Cefdinir 300 Mg Capsule, 300 MG PO BID Prescribed by: BALDOMERO MAN on 11/14/17 1433 Citalopram Hydrobromide 20 Mg Tablet, 20 MG PO DAILY, (Reported) Gabapentin 300 Mg Capsule, 300 MG PO TID PRN for NERVE PAIN, (Reported) LAST GIVEN #90 SAMPLES 08-15-17 Vits #93/Iron Fum/FA 1 Each Tablet, 1 TAB PO DAILY, (Reported) Sulfamethoxazole/Trimethoprim 1 Each Tablet, 1 EACH PO BID Prescribed by: LILI STANLEY on 11/20/17 2136 Sulfamethoxazole/Trimethoprim 1 Each Tablet, 1 EACH PO BID Prescribed by: DEREK MORRISON on 07/16/19 0412 Trazodone HCl 50 Mg Tablet, 50-150 MG PO HS, (Reported) LAST GIVEN #90 SAMPLES 08-15-17 TAKES 1-3 (50MG) TABLETS Patient Home Medication List Home Medication List Reviewed: Yes Review of Systems Review of Systems Constitutional: No chills, No fever EENTM: No ear discharge, No ear pain Respiratory: No cough, No short of breath Cardiovascular: No edema, No syncope Gastrointestinal: No abdominal pain, No constipation, No diarrhea, No nausea Genitourinary: No discharge, No dysuria Musculoskeletal: No back pain, No joint pain Skin: see HPI All Other Systems Reviewed Negative Unless Noted: Yes Past Kgbytmt-Evxutu-Mbiqbl Hx Patient Social History Alcohol Use: Denies Use Recreational Drug Use: Yes Drug of Choice: HEROIN, IV Meth MJ Smoking Status: Current Someday Smoker Type Used: Cigarettes 2nd Hand Smoke Exposure: No Recent Foreign Travel: No Contact w/Someone Who Travel: No Recent Hopitalizations: No Immunizations Up To Date Tetanus Booster (TDap): Unknown PED Vaccines UTD: Yes Seasonal Allergies Seasonal Allergies: No Past Medical History Surgeries: Yes (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 No Pertinent Family Hx Physical Exam Vital Signs Vital Signs - First Documented 07/03/20 07:20 Temp 37.1 Pulse 124 Resp 22 B/P (MAP) 131/88 (102) Pulse Ox 100 O2 Delivery Room Air Capillary Refill : General Appearance: WD/WN, mild distress HEENT: PERRL/EOMI, pharynx normal Neck: full range of motion, normal inspection Cardiovascular: normal peripheral pulses, regular rate, rhythm, tachycardia Respiratory: normal breath sounds, no respiratory distress Gastrointestinal: normal bowel sounds, non tender, soft Extremities: normal range of motion, normal capillary refill Neurologic/Psychiatric: alert, normal mood/affect, oriented x 3 Skin: other (erythematous warmth induration in about a 3 cm area on the right upper arm with surrounding erythema tracking up the right arm. Left arm and elbow has a large tangerine sized indurated area of fluctuance with pointing and minimal discharge. Right side has a 7 mm opening draining thick purulence.) Procedures/Interventions I&D #1: Site: right upper arm Blade Size: sterile cotton tipped applicator I & D Procedure: betadine prep (chlorhexidine and sterile saline) Progress Using the opening that Edvin existed we thoroughly cleansed the surface with chlorhexidine and bluntly explored the opening using a cotton-tipped applicator breaking up any loculations and expressing about 5 cc of purulent discharge. The wound was then flushed with a couple syringes full of sterile saline. I&D #2: Site: left elbow Blade Size: 11 I & D Procedure: betadine prep (chlorhexidine and alcohol) Progress Wound was infiltrated with 5 cc of 2% lidocaine with epinephrine. A 1 senna meter by 1 cm cross ramírez incision was made with an 11 blade scalpel and about 60-75 cc of thick purulent drainage was expressed. Loculations were broken up using a sterile cotton tipped applicator and then the wound was flushed with 100 cc of sterile saline. Patient tolerated procedure well. Progress/Results/Core Measures Results/Orders My Orders Orders - DEREK MORRISON Dipht,Pertuss(Acell),Tet Adult (Boostrix (07/03/20 08:00) Ketorolac Injection (Toradol Injection) (07/03/20 08:00) Doxycycline Hyclate Tablet (Vibramycin T (07/03/20 08:00) Vital Signs/I&O 07/03/20 07:20 Temp 37.1 Pulse 124 Resp 22 B/P (MAP) 131/88 (102) Pulse Ox 100 O2 Delivery Room Air Departure Impression Primary Impression: Abscess Additional Impression: Phlebitis Disposition: HOME, SELF-CARE Condition: Stable Departure-Patient Inst. Decision time for Depature: 08:22 Referrals: [facility] (PCP/Family) Primary Care Physician Patient Instructions: Abscess Incision and Drainage (DC) Add. Discharge Instructions: Keep the wound clean with regular soap and water. Change the dressing at least daily but more frequently if it becomes soiled. Encourage the wounds to stay open and draining as long as they can for the next couple days. Do not put anything in the wound such as creams, ointments or packing. Take the doxycycline one capsule twice a day with food for the next 10 days. Plan to have the wound reexamined with either your primary doctor or you may return to the emergency room in about 3 days. Return to the emergency room earlier if you develop vomiting, fever or other worrisome symptoms. All discharge instructions reviewed with patient and/or family. Voiced understanding. Scripts Doxycycline Hyclate (Doxycycline Hyclate) 100 Mg Tablet 100 MG PO BID for 10 Days, #20 TAB 0 Refills Prov: DEREK MORRISON 07/03/20 DEREK MORRISON Jul 03, 2020 07:57
[2020-07-03] MEDS ORDERED: DOXYCYCLINE 100 MG (VIBRAMYCIN) TABLET PO ONE (08:00)
[2020-07-03] MEDS ORDERED: TETANUS,DIPTH,PERTUSS P/F (BOOSTRIX) 0.5 ML VIAL IM ONE (08:00)
[2020-07-03] MEDS ORDERED: KETOROLAC 60 MG/2 ML VIAL IM ONE (08:00)
[2020-07-03] MEDS ORDERED: DOXY100T2 PO (08:25)
[2020-07-03 08:32] VITALS: BP 131/88
== END 2020-07-03 08:31 | disposition home or self-care (01) ==
LOC: EDUNIT# 07:15 → ER 07:17
DX: L02.413 Cutaneous abscess of right upper limb (principal); L02.414 Cutaneous abscess of left upper limb; I80.9 Phlebitis and thrombophlebitis of unspecified site; F17.210 Nicotine dependence, cigarettes, uncomplicated; Z88.1 Allergy status to other antibiotic agents; Z79.01 Long term (current) use of anticoagulants; Z86.711 Personal history of pulmonary embolism
CPT/HCPCS: 10060; 90715

== ENCOUNTER 2020-12-04 03:25 | Emergency (ER) | payer SELFPAY ==
[~2020-12-04] VITALS: Ht 165.1 cm; Wt 65.8 kg
[~2020-12-04 03:25] MED LIST changes: +DOXY100T2 PO
--- NOTE | 2020-12-04 03:56 | ED Lower Extremity ---
General Chief Complaint: Lower Extremity Stated Complaint: R ANKLE INJ / SWELLING Nursing Triage Note: Pt to ED-6 via wheelchair w c/o right ankle swelling/pain. Pt reports letting dog outside and stepping off porch, heard ankle "pop 3 times" Nursing Sepsis Screen: No Definite Risk (CASSANDRA LOPEZ MED STUDENT) History of Present Illness Date Seen by Provider: Dec 04, 2020 Time Seen by Provider: 03:45 Initial Comments This is a pleasant 40 year old female presenting to the Emergency Department via wheelchair with a chief complaint of a right ankle swelling and pressure pain at 3:15AM. She states that she tried to avoid tripping over the dog and stepped off the porch wrong. She heard a "pop" in her right ankle. Her friend helped her with ice and elevation. She also reported pain shooting from her right ankle up to the back of her knee. She denies pain in her foot but has swelling in her lateral ankle and pain with movement. Onset: just prior to arrival Pain/Injury Location: right ankle Method of Injury: fell, twisted (CASSANDRA LOPEZ MED STUDENT) Allergies and Home Medications Allergies Coded Allergies: cephalexin (Verified Allergy, Mild, 02/09/17) Home Medications Apixaban 5 Mg Tablet, 5 MG PO DAILY LAST RECEIVED #56 SAMPLES 06-14-17 Prescribed by: BALDOMERO MAN on 11/14/17 1433 Cefdinir 300 Mg Capsule, 300 MG PO BID Prescribed by: BALDOMERO MAN on 11/14/17 1433 Citalopram Hydrobromide 20 Mg Tablet, 20 MG PO DAILY, (Reported) Doxycycline Hyclate 100 Mg Tablet, 100 MG PO BID Prescribed by: DEREK MORRISON on 07/03/20 0825 Gabapentin 300 Mg Capsule, 300 MG PO TID PRN for NERVE PAIN, (Reported) LAST GIVEN #90 SAMPLES 08-15-17 Vits #93/Iron Fum/FA 1 Each Tablet, 1 TAB PO DAILY, (Reported) Sulfamethoxazole/Trimethoprim 1 Each Tablet, 1 EACH PO BID Prescribed by: LILI STANLEY on 11/20/17 2136 Sulfamethoxazole/Trimethoprim 1 Each Tablet, 1 EACH PO BID Prescribed by: DEREK MORRISON on 07/16/19 0412 Trazodone HCl 50 Mg Tablet, 50-150 MG PO HS, (Reported) LAST GIVEN #90 SAMPLES 10-5-17 TAKES 1-3 (50MG) TABLETS Patient Home Medication List Home Medication List Reviewed: Yes (DOREEN WALTON MD) Review of Systems Constitutional: no symptoms reported EENTM: no symptoms reported Respiratory: no symptoms reported Cardiovascular: no symptoms reported Gastrointestinal: no symptoms reported Genitourinary: no symptoms reported Musculoskeletal: joint swelling (right ankle) Skin: no symptoms reported Psychiatric/Neurological: No Symptoms Reported (CASSANDRA LOPEZ) Past Iravivp-Ngaywq-Trwxup Hx Patient Social History Drug of Choice: HEROIN, IV Meth MJ Type Used: Cigarettes 2nd Hand Smoke Exposure: No Recent Infectious Disease Expo: No Recent Hopitalizations: No (CASSANDRA LOPEZ) Immunizations Up To Date Tetanus Booster (TDap): Unknown PED Vaccines UTD: Yes (CASSANDRA LOPEZ) Seasonal Allergies Seasonal Allergies: No (CASSANDRA LOPEZ) Past Medical History Surgeries: Yes (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 No Pertinent Family Hx (CASSANDRA LOPEZ) Physical Exam Vital Signs Vital Signs - First Documented 12/04/20 03:36 Temp 35.8 Pulse 103 Resp 20 B/P (MAP) 142/93 (109) Pulse Ox 99 O2 Delivery Room Air (DOREEN WALTON MD) Vital Signs Capillary Refill : Less Than 3 Seconds (CASSANDRA LOPEZ) Height, Weight, BMI Height: 5'6.00" Weight: 177lbs. 9.0oz. 80.103167sf; 24.00 BMI Method:Stated General Appearance: WD/WN, no apparent distress Cardiovascular: regular rate, rhythm Respiratory: chest non-tender, lungs clear, normal breath sounds, no respiratory distress, no accessory muscle use Hips: bilateral hip non-tender Legs: bilateral leg non-tender, bilateral leg normal inspection, bilateral leg normal range of motion, bilateral leg no evidence of injury Knees: bilateral knee non-tender, bilateral knee normal inspection, bilateral knee normal range of motion, bilateral knee no evidence of injury Ankles: left ankle non-tender, left ankle normal inspection, left ankle normal range of motion, left ankle no evidence of injury; right ankle bone tenderness, right ankle limited range of motion, right ankle pain, right ankle swelling Feet: bilateral foot non-tender, bilateral foot normal inspection, bilateral foot normal range of motion, bilateral foot no evidence of injury Neurologic/Tendon: normal sensation, responds to pain Neurologic/Psychiatric: alert, normal mood/affect, oriented x 3 Skin: normal color (CASSANDRA LOPEZ X MED STUDENT) Progress/Results/Core Measures Results/Orders My Orders Orders - DOREEN WALTON MD Ankle, Right, 3 Views (12/04/20 04:07) (DOREEN WALTON MD) Vital Signs/I&O 12/04/20 03:36 Temp 35.8 Pulse 103 Resp 20 B/P (MAP) 142/93 (109) Pulse Ox 99 O2 Delivery Room Air (DOREEN WALTON MD) Blood Pressure Mean: 109 Progress Progress Note : Time: 03:45 Progress Note - Right ankle x-ray ordered. Because there's no pain in the feet or tenderness, x-ray of the foot is not necessary. (CASSANDRA LOPEZ X MED STUDENT) Progress Note : Progress Note X-ray revealed no fractures or dislocations. Javy wrap was applied. Patient declined crutches as she was ambulatory. (DOREEN WALTON MD) Diagnostic Imaging Diagonstic Imaging: Xray Plain Films/CT/US/NM/MRI: ankle Comments Right ankle x-ray viewed by me. Report not yet available. No acute bony injuries identified. Soft tissue swelling over the lateral malleolus noted. (DOREEN WALTON MD) Departure Impression Primary Impression: Right ankle sprain Qualified Codes: S93.401A - Sprain of unspecified ligament of right ankle, initial encounter Disposition: 01 HOME, SELF-CARE Condition: Improved Departure-Patient Inst. Decision time for Depature: 04:25 (DOREEN WALTON MD) Referrals: [facility] [place] (PCP/Family) Primary Care Physician Patient Instructions: Ankle Sprain Medical Student Attestation and Attending Note: I have personally interviewed and examined this patient along with Cassandra Lopez, MS 3. I have reviewed student documentation including history, physical, and assessments. I agree with the documentation except where otherwise noted. Exam: General: Alert, oriented, no acute distress, well developed HEENT: Normocephalic and atraumatic Heart: Regular rate and rhythm without murmur Lungs: Clear to auscultation bilaterally with normal effort Ext: Notable swelling and tenderness to the right lateral malleolus. Palpation of the foot causes pain in ankle. Patient is ambulatory. Neuropsych: Alert, oriented, no focal deficits Skin: Warm and dry without rashes (DOREEN WALTON MD) CASSANDRA LOPEZ MED STUDENT Dec 04, 2020 03:56 DOREEN WALTON MD Dec 04, 2020 04:26
[2020-12-04 05:32] VITALS: BP 134/85
--- NOTE | 2020-12-04 06:33 | Diagnostic Imaging Report ---
EXAMINATION: Right ankle radiographs, 3 views. COMPARISON: None. HISTORY: 40-year-old female, right ankle pain. FINDINGS: There is soft tissue swelling adjacent to the lateral malleolus. There is no identified acute fracture. The alignment of the ankle mortise is unremarkable. There is no tibiotalar joint effusion. There is no radiopaque foreign body. The joint spaces are well preserved. IMPRESSION: 1. Soft tissue swelling adjacent to the lateral malleolus. 2. No identified acute fracture or abnormal bone alignment. Dictated by: Dictated on workstation # [id number]
== END 2020-12-04 05:29 | disposition home or self-care (01) ==
LOC: EDUNIT# 03:25 → ER 03:26
DX: S93.401A Sprain of unspecified ligament of right ankle, initial encounter (principal); Z88.1 Allergy status to other antibiotic agents; Z86.711 Personal history of pulmonary embolism; Z79.01 Long term (current) use of anticoagulants; X50.1XXA Overexertion from prolonged static or awkward postures, initial encounter
CPT/HCPCS: 73610

== ENCOUNTER 2021-02-13 21:13 | Emergency (ER) | payer SELFPAY ==
[~2021-02-13] VITALS: Ht 162 cm; Wt 65.0 kg
[2021-02-13] MEDS ORDERED: LORazepam INJ 2 MG/ML (ATIVAN) VIAL IVP ONE (22:00)
[2021-02-13] MEDS ORDERED: cefTRIAXone FOR IV USE 1,000 MG in WATER (STERILE) FOR INJECTION 10 ML IV ONE (22:00)
[2021-02-13] MEDS ORDERED: LACTATED RINGERS 1,000 ML IV ONE (22:00)
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
[2021-02-13 22:32] LABS: BASOPHILS % (AUTO) 0 % (0-10); EOSINOPHILS % (AUTO) 0 % (0-10); HEMATOCRIT 39 % (35-52); HEMOGLOBIN 12.9 g/dL (11.5-16.0); LYMPHOCYTES # (AUTO) 1.1 10^3/uL (1.0-4.0); LYMPHOCYTES % (AUTO) 8 % (12-44); MEAN CORPUSCULAR HEMOGLOBIN 33 pg (25-34); MEAN CORPUSCULAR HGB CONC 33 g/dL (32-36); MEAN CORPUSCULAR VOLUME 98 fL (80-99); MEAN PLATELET VOLUME 9.6 fL (9.0-12.2); MONOCYTES # (AUTO) 0.9 10^3/uL (0.0-1.0); MONOCYTES % (AUTO) 6 % (0-12); NEUTROPHILS # (AUTO) 11.5 10^3/uL (1.8-7.8); NEUTROPHILS % (AUTO) 85 % (42-75); PLATELET COUNT 216 10^3/uL (130-400); WHITE BLOOD COUNT 13.5 10^3/uL (4.3-11.0)
[2021-02-13 22:42] LABS: BILIRUBIN,URINE NEGATIVE (NEGATIVE); CLARITY,URINE CLEAR; COLOR,URINE YELLOW; GLUCOSE, URINE (UA) NEGATIVE (NEGATIVE); KETONES,URINE TRACE (NEGATIVE); LEUKOCYTE ESTERASE ,URINE NEGATIVE (NEGATIVE); NITRITE,URINE NEGATIVE (NEGATIVE); PH,URINE 5.5 (5-9); PROTEIN,URINE TRACE (NEGATIVE)
[2021-02-13 22:45] LABS: ALBUMIN 3.9 GM/DL (3.2-4.5); CHLORIDE 107 MMOL/L (98-107); POTASSIUM 3.7 MMOL/L (3.6-5.0); SODIUM 139 MMOL/L (135-145)
[2021-02-13 22:48] LABS: GLUCOSE 105 MG/DL (70-105); TOTAL PROTEIN 7.3 GM/DL (6.4-8.2)
[2021-02-13 22:49] LABS: BILIRUBIN,TOTAL 0.4 MG/DL (0.1-1.0); CARBON DIOXIDE 18 MMOL/L (21-32)
[2021-02-13 22:51] LABS: ALKALINE PHOSPHATASE 83 U/L (40-136); CREATININE SERUM 0.92 MG/DL (0.60-1.30); GFR ESTIMATED > 60
[2021-02-13 22:52] LABS: BUN/CREATININE RATIO 25
[2021-02-13 22:52] LABS: BENZODIAZEPINES SCREEN URINE NEGATIVE (NEGATIVE); COCAINE SCREEN URINE NEGATIVE (NEGATIVE)
[2021-02-13 22:53] LABS: AMPHETAMINE SCREEN, URINE POSITIVE (NEGATIVE); BARBITURATE SCREEN URINE NEGATIVE (NEGATIVE); CANNABINOID SCREEN, URINE POSITIVE (NEGATIVE); METHADONE STAT NEGATIVE (NEGATIVE); METHAMPHETAMINE SCREEN URINE S POSITIVE (NEGATIVE); OPIATE SCREEN URINE NEGATIVE (NEGATIVE); OXYCODONE STAT NEGATIVE (NEGATIVE); PROPOXYPHENE STAT NEGATIVE (NEGATIVE); TRICYCLIC ANTIDEPRESSANTS SCRE POSITIVE (NEGATIVE)
[2021-02-13 22:54] LABS: ALANINE AMINOTRANSFERASE 29 U/L (0-55); CREATINE KINASE 236 U/L (29-168)
[2021-02-13 22:59] LABS: NEUTROPHILS % (MANUAL) 87 %
[2021-02-13 23:00] LABS: LYMPHOCYTES % (MANUAL) 7 %; MONOCYTES % (MANUAL) 6 %; RBC MORPH NORMAL
[2021-02-13 23:06] LABS: BACTERIA,URINE LARGE /HPF
[2021-02-14] MEDS ORDERED: LACTATED RINGERS 1,000 ML IV ONE (01:00)
[2021-02-14] MEDS ORDERED: CEPH500T PO (02:42)
[2021-02-14 05:26] VITALS: BP 122/78
== END 2021-02-14 05:28 | disposition home or self-care (01) ==
LOC: EDUNIT# 21:13 → ER 21:15
DX: L03.116 Cellulitis of left lower limb (principal); F15.20 Other stimulant dependence, uncomplicated; Z65.8 Other specified problems related to psychosocial circumstances; F41.0 Panic disorder [episodic paroxysmal anxiety]; F31.9 Bipolar disorder, unspecified; F90.9 Attention-deficit hyperactivity disorder, unspecified type; F17.210 Nicotine dependence, cigarettes, uncomplicated; Z86.711 Personal history of pulmonary embolism; Z79.01 Long term (current) use of anticoagulants
CPT/HCPCS: 80053; 80306; 81000; 82550; 85007; 85027; 86141; 87077; 87088; 99284; G0480; 36415; 80320

== ENCOUNTER 2021-06-10 15:17 | Emergency (ER) | payer SELFPAY ==
[~2021-06-10] VITALS: Ht 165 cm; Wt 63.5 kg
[~2021-06-10 15:17] MED LIST changes: +CEPH500T PO; -SULF1TAB35 PO; +SULF1TAB38 PO
[2021-06-10 15:40] VITALS: BP 143/84
== END 2021-06-10 16:40 | disposition left against medical advice (07) ==
LOC: EDUNIT# 15:17 → ER 15:21
DX: T63.301A Toxic effect of unspecified spider venom, accidental (unintentional), initial encounter (principal)
CPT/HCPCS: 99283

== ENCOUNTER 2021-11-24 12:50 | Day surgery (SDC) | payer SELFPAY ==
[~2021-11-24] VITALS: Ht 167.7 cm; Wt 58.3 kg
[2021-11-24] VITALS (7 sets, daily range): BP systolic 121–136; BP diastolic 65–91
[2021-11-24 14:49] LABS: BASOPHILS % (AUTO) 0 % (0-10); EOSINOPHILS # (AUTO) 0.1 10^3/uL (0.0-0.3); EOSINOPHILS % (AUTO) 1 % (0-10); HEMATOCRIT 44 % (35-52); HEMOGLOBIN 15.2 g/dL (11.5-16.0); LYMPHOCYTES # (AUTO) 1.3 10^3/uL (1.0-4.0); LYMPHOCYTES % (AUTO) 11 % (12-44); MEAN CORPUSCULAR HEMOGLOBIN 33 pg (25-34); MEAN CORPUSCULAR HGB CONC 34 g/dL (32-36); MEAN CORPUSCULAR VOLUME 96 fL (80-99); MEAN PLATELET VOLUME 10.8 fL (9.0-12.2); MONOCYTES % (AUTO) 9 % (0-12); NEUTROPHILS % (AUTO) 79 % (42-75); PLATELET COUNT 232 10^3/uL (130-400); WHITE BLOOD COUNT 11.4 10^3/uL (4.3-11.0)
--- NOTE | 2021-11-24 14:49 | ED General ---
General Chief Complaint: Abdominal/GI Problems Stated Complaint: FATIGUE,UNABLE TO EAT,N/V,HERNIA PAIN Source of Information: Patient Exam Limitations: No Limitations (NADER NAJERA STUDENT) History of Present Illness Date Seen by Provider: Nov 24, 2021 Time Seen by Provider: 14:41 Initial Comments Richa Norton is a 41 yr old F presenting to the ED due to abdominal pain, constipation, N/V, and fatigue. Pt's symptoms have been ongoing for approximately 4 days and have progressively worsening. Abdominal pain is a 9/10 that is described as a constant contraction. Pt's PMH includes midline periumbilical hernia. PSH includes lumbar spinal repair following spinal osteomyelitis and tubal ligation. Pt denies known fevers and endorses increased need for sleep. Pain worsened with movement and valsalva maneuvers. Pt has been alternating between ibuprofen and Tylenol which has provided minimal to no relief of pain. Pertinent information obtained includes lack of both bowel movement and flatus since 4 days ago. Timing/Duration: 3-4 Days Modifying Factors: worse with Movement, worse with Other (Valsalva) Associated Systoms: No Fever/Chills; Loss of Appetite, Malaise, Nausea/Vomiting, Other (Constipation) (NADER NAJERA MED STUDENT) Allergies and Home Medications Allergies Coded Allergies: No Known Drug Allergies (Unverified , 11/24/21) Patient Home Medication List Home Medication List Reviewed: Yes (DOREEN WALTON MD) Apixaban (Eliquis) 5 Mg Tablet, 5 MG PO DAILY Prescribed by: BALDOMERO MAN on 11/14/17 1433 Cefdinir (Cefdinir) 300 Mg Capsule, 300 MG PO BID Prescribed by: BALDOMERO MAN on 11/14/17 1433 Cephalexin (Cephalexin) 500 Mg Tablet, 500 MG PO QID Prescribed by: DEREK MORRISON on 02/14/21 0242 Citalopram Hydrobromide (Celexa) 20 Mg Tablet, 20 MG PO DAILY, (Reported) Entered as Reported by: LORI PARADA on 11/14/17 0841 Doxycycline Hyclate (Doxycycline Hyclate) 100 Mg Tablet, 100 MG PO BID Prescribed by: DEREK MORRISON on 07/03/20 0825 Gabapentin (Gabapentin) 300 Mg Capsule, 300 MG PO TID PRN for NERVE PAIN, (Reported) Entered as Reported by: LORI PARADA on 11/14/17 0841 Vits #93/Iron Fum/FA ( Formula Tablet) 1 Each Tablet, 1 TAB PO DAILY, (Reported) Entered as Reported by: LORI PARADA on 11/14/17 0841 Sulfamethoxazole/Trimethoprim (Bactrim Ds Tablet) 1 Each Tablet, 1 EACH PO BID Prescribed by: LILI STANLEY on 11/20/17 2136 Sulfamethoxazole/Trimethoprim (Bactrim Ds Tablet) 1 Each Tablet, 1 EACH PO BID Prescribed by: DEREK MORRISON on 07/16/19 0412 Trazodone HCl (Trazodone HCl) 50 Mg Tablet, 50-150 MG PO HS, (Reported) Entered as Reported by: LORI PARADA on 11/14/17 0841 Review of Systems Review of Systems Constitutional: No fever EENTM: no symptoms reported Respiratory: no symptoms reported Cardiovascular: no symptoms reported Gastrointestinal: abdominal pain (LLQ/ Periumbilical), constipation, nausea, vomiting, other (No flatus) Genitourinary: no symptoms reported : No Musculoskeletal: no symptoms reported Skin: no symptoms reported Psychiatric/Neurological: No Symptoms Reported Hematologic/Lymphatic: No Symptoms Reported Immunological/Allergic: no symptoms reported (NADER NAJERA MED STUDENT) All Other Systems Reviewed Negative Unless Noted: Yes (NADER NAJERA MED STUDENT) Past Rcgabgs-Tmjsde-Litqye Hx Immunizations Up To Date Tetanus Booster (TDap): Unknown PED Vaccines UTD: Yes (NADER NAJERA MED STUDENT) Seasonal Allergies Seasonal Allergies: No (NADER NAJERA MED STUDENT) Past Medical History Surgeries: Yes (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 No Pertinent Family Hx (NADER NAJERA [employer] STUDENT) Physical Exam Vital Signs Vital Signs - First Documented 11/24/21 13:10 Temp 36.7 Pulse 117 Resp 18 B/P (MAP) 137/91 (106) Pulse Ox 100 O2 Delivery Room Air (DOREEN WALTON MD) Vital Signs Capillary Refill : (NADER NAJERA [employer] STUDENT) Height, Weight, BMI Height: 5'6.00" Weight: 177lbs. 9.0oz. [id number]; 23.00 BMI Method:Stated General Appearance: WD/WN, Mild Distress Neck: Full Range of Motion, Normal Inspection Respiratory: Chest Non Tender, Lungs Clear, Normal Breath Sounds, No Accessory Muscle Use, No Respiratory Distress Cardiovascular: No Edema, No Gallop, No JVD, No Murmur, Tachycardia Gastrointestinal: No Organomegaly, No Pulsatile Mass, Soft, Abnormal Bowel Sounds (Decreased), Hernia (Periumbilical), Tenderness (LLQ/ periumbilical) Neurologic/Psychiatric: Alert, Oriented x3 Skin: Normal Color, Warm/Dry, Tattoos/Piercings (NADER NAJERA [employer] STUDENT) Progress/Results/Core Measures Suspected Sepsis SIRS Temperature: Pulse: Respiratory Rate: Laboratory Tests 11/24/21 14:40: White Blood Count 11.4H Blood Pressure / Mean: Laboratory Tests 11/24/21 14:40: Platelet Count 232 (NADER NAJERA [employer] STUDENT) Results/Orders Lab Results Laboratory Tests Test 11/24/21 13:13 11/24/21 14:40 11/24/21 15:35 Range/Units Influenza Type A (RT-PCR) Not Detected Not Detecte Influenza Type B (RT-PCR) Not Detected Not Detecte SARS-CoV-2 RNA (RT-PCR) Not Detected Not Detecte White Blood Count 11.4 H 4.3-11.0 10^3/uL Red Blood Count 4.64 3.80-5.11 10^6/uL Hemoglobin 15.2 11.5-16.0 g/dL Hematocrit 44 35-52 % Mean Corpuscular Volume 96 80-99 fL Mean Corpuscular Hemoglobin 33 25-34 pg Mean Corpuscular Hemoglobin Concent 34 32-36 g/dL Red Cell Distribution Width 14.2 10.0-14.5 % Platelet Count 232 130-400 10^3/uL Mean Platelet Volume 10.8 9.0-12.2 fL Immature Granulocyte % (Auto) 0 % Neutrophils (%) (Auto) 79 H 42-75 % Lymphocytes (%) (Auto) 11 L 12-44 % Monocytes (%) (Auto) 9 0-12 % Eosinophils (%) (Auto) 1 0-10 % Basophils (%) (Auto) 0 0-10 % Neutrophils # (Auto) 9.0 H 1.8-7.8 10^3/uL Lymphocytes # (Auto) 1.3 1.0-4.0 10^3/uL Monocytes # (Auto) 1.0 0.0-1.0 10^3/uL Eosinophils # (Auto) 0.1 0.0-0.3 10^3/uL Basophils # (Auto) 0.0 0.0-0.1 10^3/uL Immature Granulocyte # (Auto) 0.0 0.0-0.1 10^3/uL Sodium Level 134 L 135-145 MMOL/L Potassium Level 3.6 3.6-5.0 MMOL/L Chloride Level 101 98-107 MMOL/L Carbon Dioxide Level 20 L 21-32 MMOL/L Anion Gap 13 5-14 MMOL/L Blood Urea Nitrogen 11 7-18 MG/DL Creatinine 0.78 0.60-1.30 MG/DL Estimat Glomerular Filtration Rate 98 BUN/Creatinine Ratio 14 Glucose Level 91 70-105 MG/DL Calcium Level 9.3 8.5-10.1 MG/DL Corrected Calcium 9.3 8.5-10.1 MG/DL Total Bilirubin 0.9 0.1-1.0 MG/DL Aspartate Amino Transf (AST/SGOT) 22 5-34 U/L Alanine Aminotransferase (ALT/SGPT) 36 0-55 U/L Alkaline Phosphatase 89 40-136 U/L C-Reactive Protein High Sensitivity 27.55 H 0.00-0.50 MG/DL Total Protein 8.3 H 6.4-8.2 GM/DL Albumin 4.0 3.2-4.5 GM/DL Lipase 20 8-78 U/L Serum Test, Qualitative NEGATIVE NEGATIVE Urine Color YELLOW Urine Clarity CLEAR Urine pH 6.5 5-9 Urine Specific [place] 1.010 L 1.016-1.022 Urine Protein NEGATIVE NEGATIVE Urine Glucose (UA) NEGATIVE NEGATIVE Urine Ketones TRACE H NEGATIVE Urine Nitrite NEGATIVE NEGATIVE Urine Bilirubin NEGATIVE NEGATIVE Urine Urobilinogen 4.0 < = 1.0 MG/DL Urine Leukocyte Esterase NEGATIVE NEGATIVE Urine RBC (Auto) 1+ H NEGATIVE Urine RBC RARE /HPF Urine WBC RARE /HPF Urine Squamous Epithelial Cells 2-5 /HPF Urine Crystals NONE /LPF Urine Bacteria TRACE /HPF Urine Casts NONE /LPF Urine Mucus SMALL H /LPF Urine Culture Indicated NO (DOREEN WALTON MD) My Orders Orders - DOREEN WALTON MD Cbc With Automated Diff (11/24/21 13:33) Comprehensive Metabolic Panel (11/24/21 13:33) Hs C Reactive Protein (11/24/21 13:33) Lipase (11/24/21 13:33) Ua Culture If Indicated (11/24/21 13:33) Hcg,Qualitative Serum (11/24/21 13:33) Covid 19 Inhouse Test (11/24/21 13:52) Influenza A And B By Pcr (11/24/21 13:52) Isolation Central Supply Req (11/24/21 13:52) Ondansetron Injection (Zofran Injectio (11/24/21 15:00) Fentanyl Inj (Sublimaze Injection) (11/24/21 15:00) Ed Iv/Invasive Line Start (11/24/21 14:49) Lactated Ringers (Lr 1000 Ml Iv Solution (11/24/21 15:00) Ct Abdomen/Pelvis W (11/24/21 14:50) Iohexol Injection (Omnipaque 350 Mg/Ml 1 (11/24/21 15:00) Received Contrast (Hold Metformin- Contr (11/24/21 15:00) Sodium Chloride Flush (Catheter Flush Sy (11/24/21 15:00) Ns (Ivpb) (Sodium Chloride 0.9% Ivpb Bag (11/24/21 15:00) (DOREEN WALTON MD) Medications Given in ED Current Medications Medications Dose Ordered Sig/Ayesha Route Start Time Stop Time Status Last Admin Dose Admin Fentanyl Citrate 50 mcg ONCE ONCE IVP 11/24/21 15:00 11/24/21 15:01 DC 11/24/21 15:15 50 MCG Iohexol 100 ml ONCE ONCE IV 11/24/21 15:00 11/24/21 15:01 DC 11/24/21 14:59 72 ML Lactated Ringer's 1,000 ml @ 0 mls/hr Q0M ONCE IV 11/24/21 15:00 11/24/21 15:01 DC 11/24/21 15:17 1,000 MLS/HR Ondansetron HCl 8 mg ONCE ONCE IVP 11/24/21 15:00 11/24/21 15:01 DC 11/24/21 15:17 8 MG Sodium Chloride 10 ml NEEDED PRN IV 11/24/21 15:00 11/24/21 14:59 10 ML Sodium Chloride 100 ml ONCE ONCE IV 11/24/21 15:00 11/24/21 15:01 DC 11/24/21 14:59 80 ML (DOREEN WALTON MD) Vital Signs/I&O 11/24/21 13:10 Temp 36.7 Pulse 117 Resp 18 B/P (MAP) 137/91 (106) Pulse Ox 100 O2 Delivery Room Air (DOREEN WALTON MD) Vital Signs/I&O Capillary Refill : (NADER NAJERA MED STUDENT) Progress Note : Time: 15:33 Progress Note Patient was treated with fentanyl and Zofran. IV fluids are infusing. CT scan was reviewed with Dr. Horn. Options discussed with the patient along with Dr. Horn. Patient elects prompt surgery for hernia repair. We will hold the patient in the ER until OR is ready for her. She feels much better after medications. (DOREEN WALTON MD) Diagnostic Imaging Diagonstic Imaging: CT Plain Films/CT/US/NM/MRI: abdomen, pelvis Comments CT abdomen and pelvis viewed by me and report reviewed. See report below: NAME: RICHA NORTON MED REC#: [id number] PT STATUS: REG ER : 1980 PHYSICIAN: DOREEN WALTON MD ADMIT DATE: 11/24/21/ER Draft Date of Exam:11/24/21 CT ABDOMEN/PELVIS W EXAMINATION: CT abdomen and pelvis with intravenous contrast. TECHNIQUE: Multiple contiguous axial images were obtained through the abdomen and pelvis after the uneventful administration of intravenous contrast. All CT scans use one or more of the following dose optimizing techniques: automated exposure control, MA and/or KvP adjustment based on patient size and exam type or iterative reconstruction. HISTORY: Abdominal pain, vomiting, hernia COMPARISON: 04/24/2017. FINDINGS: Lung bases: Bibasilar dependent atelectasis. Solid organs: The liver is normal without focal lesion. The gallbladder is normal. There is no biliary ductal dilation. Pancreas is normal. Spleen is normal. Adrenal glands are normal. The kidneys are normal without hydronephrosis. Bowel: The stomach is unremarkable. There are loops of small bowel present within a periumbilical hernia without findings to suggest obstruction. The colon and appendix are normal. Peritoneum: Trace free fluid in the pelvis. No loculated fluid collection or intra-abdominal free air. No suspicious lymphadenopathy. Vasculature: Normal without aneurysm. Musculoskeletal: Surgical degenerative changes of the spine without suspicious osseous lesion or compression fracture. There is a periumbilical hernia which contains fat as well as loops of small bowel. There is significant fat stranding seen within the herniated fat. Pelvis: The uterus and adnexa are normal. The urinary bladder is normal. IMPRESSION: 1. Fat-containing periumbilical hernia containing loops of small bowel without obstruction. There is significant fat stranding seen within the herniated fat which raises the concern for strangulation. Recommend correlation with physical exam. 2. No other acute abnormality in the abdomen or pelvis. Dictated on workstation # [id number] Dict: 11/24/21 1511 Trans: 11/24/21 1519 [id number] Interpreted by: QUINTON CHEUNG DO (DOREEN WALTON MD) Departure Communication (Admissions) Time/Spoke to Admitting Phy: 15:25 Dr. Horn (DOREEN WALTON MD) Impression Primary Impression: Abdominal wall hernia Additional Impressions: Abdominal pain Qualified Codes: R10.84 - Generalized abdominal pain Nausea & vomiting Qualified Codes: R11.2 - Nausea with vomiting, unspecified Disposition: ADMITTED INPATIENT Condition: Improved Admissions Decision to Admit Reason: Admit from ER (General) Decision to Admit/Date: Nov 24, 2021 Time/Decision to Admit Time: 15:25 (DOREEN WALTON MD) Departure-Patient Inst. Referrals: NO,LOCAL PHYSICIAN (PCP/Family) Primary Care Physician Medical Student Attestation and Attending Note: I have personally interviewed and examined this patient along with Nader Najera, MS 4. I have reviewed student documentation including history, physical, and assessments. I agree with the documentation except where otherwise noted. Exam: General: Alert, oriented, moderate acute distress, well developed HEENT: Normocephalic and atraumatic Heart: Tachycardia with regular rhythm without murmur Lungs: Clear to auscultation bilaterally with normal effort Abdomen: Soft, protruding periumbilical hernia with localized tenderness. Neuropsych: Alert, oriented, no focal deficits Skin: Warm and dry without rashes (DOREEN WALTON MD) NADER NAJERA MED STUDENT Nov 24, 2021 14:49 DOREEN WALTON MD Nov 24, 2021 15:35
[2021-11-24] MEDS ORDERED: NS 100 ML (IVPB) BAG IV ONE (15:00)
[2021-11-24] MEDS ORDERED: ONDANSETRON 4 MG/2 ML (SDV) Z0FRAN IVP ONE (15:00)
[2021-11-24] MEDS ORDERED: HOLD METFORMIN - RECEIVED CONTRAST 20 ML VIAL IV SCH (15:00)
[2021-11-24] MEDS ORDERED: IOHEXOL 350 MG/ML 100 ML (OMNIPAQUE 350) VIAL IV ONE (15:00)
[2021-11-24] MEDS ORDERED: CATHETER FLUSH 10 ML SYR IV PRN (15:00)
[2021-11-24] MEDS ORDERED: fentaNYL INJ 100 MCG/2 ML AMP IVP ONE (15:00)
[2021-11-24] MEDS ORDERED: LACTATED RINGERS 1,000 ML IV ONE ×2 (15:00→19:51)
[2021-11-24 15:02] LABS: POTASSIUM 3.6 MMOL/L (3.6-5.0)
[2021-11-24 15:03] LABS: CALCIUM 9.3 MG/DL (8.5-10.1)
[2021-11-24 15:04] LABS: TOTAL PROTEIN 8.3 GM/DL (6.4-8.2)
[2021-11-24 15:06] LABS: BILIRUBIN,TOTAL 0.9 MG/DL (0.1-1.0)
[2021-11-24 15:08] LABS: CREATININE SERUM 0.78 MG/DL (0.60-1.30)
--- NOTE | 2021-11-24 15:19 | Diagnostic Imaging Report ---
EXAMINATION: CT abdomen and pelvis with intravenous contrast. TECHNIQUE: Multiple contiguous axial images were obtained through the abdomen and pelvis after the uneventful administration of intravenous contrast. All CT scans use one or more of the following dose optimizing techniques: automated exposure control, MA and/or KvP adjustment based on patient size and exam type or iterative reconstruction. HISTORY: Abdominal pain, vomiting, hernia COMPARISON: 04/24/2017. FINDINGS: Lung bases: Bibasilar dependent atelectasis. Solid organs: The liver is normal without focal lesion. The gallbladder is normal. There is no biliary ductal dilation. Pancreas is normal. Spleen is normal. Adrenal glands are normal. The kidneys are normal without hydronephrosis. Bowel: The stomach is unremarkable. There are loops of small bowel present within a periumbilical hernia without findings to suggest obstruction. The colon and appendix are normal. Peritoneum: Trace free fluid in the pelvis. No loculated fluid collection or intra-abdominal free air. No suspicious lymphadenopathy. Vasculature: Normal without aneurysm. Musculoskeletal: Surgical degenerative changes of the spine without suspicious osseous lesion or compression fracture. There is a periumbilical hernia which contains fat as well as loops of small bowel. There is significant fat stranding seen within the herniated fat. Pelvis: The uterus and adnexa are normal. The urinary bladder is normal. IMPRESSION: 1. Fat-containing periumbilical hernia containing loops of small bowel without obstruction. There is significant fat stranding seen within the herniated fat which raises the concern for strangulation. Recommend correlation with physical exam. 2. No other acute abnormality in the abdomen or pelvis. Dictated by: Dictated on workstation # [id number]
--- NOTE | 2021-11-24 15:47 | Consultation - Surgery ---
History of Present Illness History of Present Illness Patient Consulted On(estrella/time) 11/24/21 15:41 Time Seen by Provider: 15:14 History of Present Illness Surgery asked to consult regarding severe abdominal pain and hernia. HPI per ED: Whitney Zavaleta is a 41 yr old F presenting to the ED due to abdominal pain, constipation, N/V, and fatigue. Pt's symptoms have been ongoing for approximately 4 days and have progressively worsening. Abdominal pain is a 9/10 that is described as a constant contraction. Pt's PMH includes midline periumbilical hernia. PSH includes lumbar spinal repair following spinal osteomyelitis and tubal ligation. Pt denies known fevers and endorses increased need for sleep. Pain worsened with movement and valsalva maneuvers. Pt has been alternating between ibuprofen and Tylenol which has provided minimal to no relief of pain. Pertinent information obtained includes lack of both bowel movement and flatus since 4 days ago. Timing/Duration: 3-4 Days Modifying Factors: worse with Movement, worse with Other (Valsalva) Associated Systoms: No Fever/Chills; Loss of Appetite, Malaise, Nausea/Vo miting, Other (Constipation) When I spoke to pt she was in the ER bed on her side, rocking back in forth because of pain and tearful. She stated the pain started about 5 days ago, hasn't eaten in four days and has severe nausea and vomiting. Everytime she tries to eat or drink she vomits and states all she has been doing is sleeping. Pain is 10 out of 10, mostly at midline incision where there is a bulge (which is her hernia). She states the incision was from spinal surgery. Nothing is helping the pain and movements make it worse. Allergies and Home Medications Allergies Coded Allergies: No Known Drug Allergies (Unverified , 11/24/21) Patient Home Medication List Home Medication List Reviewed: Yes (states she has taken the Eliquis in years) Apixaban (Eliquis) 5 Mg Tablet, 5 MG PO DAILY Prescribed by: BALDOMERO MAN on 11/14/17 1433 Cefdinir (Cefdinir) 300 Mg Capsule, 300 MG PO BID Prescribed by: BALDOMERO MAN on 11/14/17 1433 Cephalexin (Cephalexin) 500 Mg Tablet, 500 MG PO QID Prescribed by: DEREK MORRISON on 02/14/21 0242 Citalopram Hydrobromide (Celexa) 20 Mg Tablet, 20 MG PO DAILY, (Reported) Entered as Reported by: LORI PARADA on 11/14/17 0841 Doxycycline Hyclate (Doxycycline Hyclate) 100 Mg Tablet, 100 MG PO BID Prescribed by: DEREK MORRISON on 07/03/20 0825 Gabapentin (Gabapentin) 300 Mg Capsule, 300 MG PO TID PRN for NERVE PAIN, (Reported) Entered as Reported by: LORI PARADA on 11/14/17 0841 Vits #93/Iron Fum/FA ( Formula Tablet) 1 Each Tablet, 1 TAB PO DAILY, (Reported) Entered as Reported by: LORI PARADA on 11/14/17 0841 Sulfamethoxazole/Trimethoprim (Bactrim Ds Tablet) 1 Each Tablet, 1 EACH PO BID Prescribed by: LILI STANLEY on 11/20/17 2136 Sulfamethoxazole/Trimethoprim (Bactrim Ds Tablet) 1 Each Tablet, 1 EACH PO BID Prescribed by: DEREK MORRISON on 07/16/19 0412 Trazodone HCl (Trazodone HCl) 50 Mg Tablet, 50-150 MG PO HS, (Reported) Entered as Reported by: LORI PARADA on 11/14/17 0841 Past Gacjatr-Sodmne-Tfdpej Hx Patient Social History Drug of Choice: HEROIN, IV Meth - last was 2 weeks ago, cannibus - 2-3 days ago Smoking Status: Current Everyday Smoker Type Used: Cigarettes 2nd Hand Smoke Exposure: No Recent Hopitalizations: No Alcohol Use?: No Substance type: Methamphetamine, Marijuana Have you traveled recently?: No Immunizations Up To Date Tetanus Booster (TDap): Unknown PED Vaccines UTD: Yes Seasonal Allergies Seasonal Allergies: No Surgeries History of Surgeries: Yes (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 ) Surgeries: Orthopedic (Lumbar spine), Tubal Ligation Respiratory History of Respiratory Disorde: Yes Respiratory Disorders: Pulmonary Embolism Cardiovascular History of Cardiac Disorders: No Neurological History of Neurological Disord: No Reproductive System Sexually Transmitted Disease: No HIV/AIDS: No 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 Genitourinary History of Genitourinary Disor: No Gastrointestinal History of Gastrointestinal Di: Yes (HERNIA) Musculoskeletal History of Musculoskeletal Dis: No Endocrine History of Endocrine Disorders: No HEENT History of HEENT Disorders: No Cancer History of Cancer: No Psychosocial History of Psychiatric Problem: Yes Behavioral Health Disorders: ADD/ADHD, Anxiety, Bipolar, Violent Behavior, Depression Integumentary History of Skin or Integumenta: Yes (multiple abscesses of the BUE) Blood Transfusions History of Blood Disorders: No Adverse Reaction to a Blood Tr: No Family Medical History Significant Family History: Diabetes (denies) Family Medial History: Patient reports no known family medical history. Review of Systems-General Constitutional: No diaphoresis, No fever; malaise, weakness EENTM: No blurred vision, No mouth pain, No mouth swelling, No epistaxis, No throat swelling Respiratory: No cough, No dyspnea on exertion; other (hx of PE after spinal surgery) Cardiovascular: No chest pain, No Hx of Intervention, No palpitations Gastrointestinal: abdominal pain; No hematemesis; loss of appetite, nausea, vomiting Genitourinary: No dysuria, No frequency, No hematuria Musculoskeletal: back pain, joint pain, muscle stiffness Skin: No change in color, No change in hair/nails Psychiatric/Neurological: Anxiety, Depressed; Denies Seizure Physical Exam-General Problems Physical Exam Vital Signs Vital Signs - First Documented 11/24/21 13:10 Temp 36.7 Pulse 117 Resp 18 B/P (MAP) 137/91 (106) Pulse Ox 100 O2 Delivery Room Air Capillary Refill : Less Than 3 Seconds General Appearance: moderate distress, thin Eyes: Bilateral Eye PERRL, Bilateral Eye EOMI HEENT: pharynx normal; No scleral icterus (R), No scleral icterus (L) Neck: non-tender, supple Respiratory: lungs clear, normal breath sounds, no respiratory distress, no accessory muscle use Cardiovascular: no murmur, tachycardia Gastrointestinal: soft, no organomegaly, tenderness, hernia (incarcerated ventr al/incisional hernia, very tender but no erythema) Back: no CVA tenderness, vertebral tenderness Extremities: no pedal edema, no calf tenderness, normal capillary refill Neurologic/Psychiatric: no motor/sensory deficits, alert, normal mood/affect, oriented x 3 Skin: normal color, warm/dry Lymphatic: no adenopathy (neck, axilla or groin) Data Review Labs Laboratory Tests 11/24/21 13:13: Influenza Type A (RT-PCR) Not Detected, Influenza Type B (RT-PCR) Not Detected, SARS-CoV-2 RNA (RT-PCR) Not Detected 11/24/21 14:40: White Blood Count 11.4H, Red Blood Count 4.64, Hemoglobin 15.2, Hematocrit 44, Mean Corpuscular Volume 96, Mean Corpuscular Hemoglobin 33, Mean Corpuscular Hemoglobin Concent 34, Red Cell Distribution Width 14.2, Platelet Count 232, Mean Platelet Volume 10.8, Immature Granulocyte % (Auto) 0, Neutrophils (%) (Auto) 79H, Lymphocytes (%) (Auto) 11L, Monocytes (%) (Auto) 9, Eosinophils (%) (Auto) 1, Basophils (%) (Auto) 0, Neutrophils # (Auto) 9.0H, Lymphocytes # (Auto) 1.3, Monocytes # (Auto) 1.0, Eosinophils # (Auto) 0.1, Basophils # (Auto) 0.0, Immature Granulocyte # (Auto) 0.0, Sodium Level 134L, Potassium Level 3.6, Chloride Level 101, Carbon Dioxide Level 20L, Anion Gap 13, Blood Urea Nitrogen 11, Creatinine 0.78, Estimat Glomerular Filtration Rate 98, BUN/Creatinine Ratio 14, Glucose Level 91, Calcium Level 9.3, Corrected Calcium 9.3, Total Bilirubin 0.9, Aspartate Amino Transf (AST/SGOT) 22, Alanine Aminotransferase (ALT/SGPT) 36, Alkaline Phosphatase 89, C-Reactive Protein High Sensitivity 27.55H, Total Protein 8.3H, Albumin 4.0, Lipase 20, Serum Test, Qualitative NEGATIVE Radiology Date of Exam:11/24/21 CT ABDOMEN/PELVIS W EXAMINATION: CT abdomen and pelvis with intravenous contrast. TECHNIQUE: Multiple contiguous axial images were obtained through the abdomen and pelvis after the uneventful administration of intravenous contrast. All CT scans use one or more of the following dose optimizing techniques: automated exposure control, MA and/or KvP adjustment based on patient size and exam type or iterative reconstruction. HISTORY: Abdominal pain, vomiting, hernia COMPARISON: 04/24/2017. FINDINGS: Lung bases: Bibasilar dependent atelectasis. Solid organs: The liver is normal without focal lesion. The gallbladder is normal. There is no biliary ductal dilation. Pancreas is normal. Spleen is normal. Adrenal glands are normal. The kidneys are normal without hydronephrosis. Bowel: The stomach is unremarkable. There are loops of small bowel present within a periumbilical hernia without findings to suggest obstruction. The colon and appendix are normal. Peritoneum: Trace free fluid in the pelvis. No loculated fluid collection or intra-abdominal free air. No suspicious lymphadenopathy. Vasculature: Normal without aneurysm. Musculoskeletal: Surgical degenerative changes of the spine without suspicious osseous lesion or compression fracture. There is a periumbilical hernia which contains fat as well as loops of small bowel. There is significant fat stranding seen within the herniated fat. Pelvis: The uterus and adnexa are normal. The urinary bladder is normal. IMPRESSION: 1. Fat-containing periumbilical hernia containing loops of small bowel without obstruction. There is significant fat stranding seen within the herniated fat which raises the concern for strangulation. Recommend correlation with physical exam. 2. No other acute abnormality in the abdomen or pelvis. Dictated on workstation # [id number] Dict: 11/24/21 1511 Trans: 11/24/21 1519 [id number] Interpreted by: QUINTON CHEUNG DO Assessment/Plan Assessment/Plan Assessment/Plan Incarcerated Ventral/Incisional hernia - possibly strangulated Pt has a mildly elevated WBC, appears to be in moderate to severe pain and her CRP is elevated. I reviewed the CT myself and noted the hernia with small portion of bowel in it; looked at least injected. Radiologist read it as possibly strangulated. I gave pt two options 1) Pain control and home (or admit) to see if it resolves 2) go to the OR to reduce hernia and try and repair with mesh. I think her pain is probably from this hernia and if the entrapped contents are starting to she needs urgent possibly emergent surgery. I did tell her I couldn't promise all her pain would go away and I also may not be able to repair with mesh; depending on what it looks like. She wants surgery. We went over risks and complications, not limited to pain, bleeding, infection, scar, damage to bowel and need for further procedure. All questions answered to her satisfaction. NAVIN HARPER DO Nov 24, 2021 15:47
[2021-11-24 15:48] LABS: BILIRUBIN,URINE NEGATIVE (NEGATIVE); CLARITY,URINE CLEAR; COLOR,URINE YELLOW; GLUCOSE, URINE (UA) NEGATIVE (NEGATIVE); KETONES,URINE TRACE (NEGATIVE); LEUKOCYTE ESTERASE ,URINE NEGATIVE (NEGATIVE); NITRITE,URINE NEGATIVE (NEGATIVE); PH,URINE 6.5 (5-9); PROTEIN,URINE NEGATIVE (NEGATIVE)
[2021-11-24 16:02] LABS: BACTERIA,URINE TRACE /HPF; RBC,URINE RARE /HPF; WBC,URINE RARE /HPF
[2021-11-24] MEDS ORDERED: fentaNYL INJ 100 MCG/2 ML AMP ONE (16:07)
[2021-11-24] MEDS ORDERED: MIDAZOLAM 2 MG/2 ML (VERSED) VIAL ONE (16:07)
[2021-11-24] MEDS ORDERED: SEVOFLURANE (ULTANE) 15 ML INHAL SOLN ONE ×2 (16:07→17:33)
[2021-11-24] MEDS ORDERED: ROCURONIUM 10 MG/ML 5 ML SYRINGE IV ONE (16:07)
[2021-11-24] MEDS ORDERED: LIDOCAINE PF 2% 5 ML (XYLOCAINE) VIAL ONE ×2 (16:07→16:11)
[2021-11-24] MEDS ORDERED: proPOfol 200 MG/20 ML (DIPRIVAN) VIAL IV ONE (16:07)
[2021-11-24] MEDS ORDERED: ONDANSETRON 4 MG/2 ML (SDV) Z0FRAN ONE (16:07)
[2021-11-24] MEDS ORDERED: LIDOCAINE/EPI 1%-1:200,000 (XYLOCAINE) 30 ML VIAL ONE (16:11)
[2021-11-24] MEDS ORDERED: NS (IVPB) 50 ML ONE (16:12)
[2021-11-24] MEDS: ceFAZolin INJECTION 2,000 MG ONE ×3 (16:13→16:34)
[2021-11-24] MEDS: LACTATED RINGERS 1,000 ML IV PRN ×2 (16:20→17:11)
[2021-11-24] MEDS ORDERED: ceFAZolin 2 GM IV Premixed 50 ML IV ONE (16:30)
[2021-11-24] MEDS ORDERED: HYDROmorphone 2 MG/ML VIAL (DILAUDID) ONE (17:20)
[2021-11-24] MEDS ORDERED: KETOROLAC 30 MG/ML VIAL ONE ×2 (17:37→19:52)
--- NOTE | 2021-11-24 17:51 | Progress Note-Post Operative ---
Post-Operative Progess Note Surgeon (s)/Spring Coiler (s) Surgeon NAVIN HARPER DO Spring Coiler: AARON Levy Pre-Operative Diagnosis incarcerated ventral/incisional hernia Post-Operative Diagnosis same Procedure & Operative Findings Date of Procedure 11/24/21 Procedure Performed/Findings PROCEDURE: Laparoscopic Ventral/incisional hernia repair with mesh. COMPLICATIONS: None. INDICATIONS: The patient is a 41, female with an incarcerated ventral/incisional hernia, which was causing severe discomfort and on CT looked like it could be strangulated. It was not reducible in the ER. The patient was explained the risk and benefits of the procedure and wished to proceed with the procedure. Consent was signed on the chart. DESCRIPTION OF PROCEDURE: The patient was taken into the operating suite, prepped and draped in sterile fashion. Surgical pause was performed. Local anesthetic was infiltrated in left upper quadrant. A #11 blade scalpel was used to make a small skin incision. Cautery was used to dissect down to the fascia, which was then scored and divided the muscle, went through the posterior sheath and a balloon trocar was inserted into the abdomen. The abdomen was then insufflated. Pt had two defects seen in the fascia, pictures taken. Most of the hernia contents had spontaneously reduced on its own with relaxation. A 5 mm trocar was placed in the right lower quadrant and another 5 mm trocar was placed in left lower quadrant. The defect measured right at 5cm; therefore, elected to open and close with #1 PDS looped suture. After opening the abdomen also elected to remove the hernia sac with bovie cautery. Just prior to closing placed a 10 x 15cm mesh into the abdomen; Echo Ventralight mesh. The balloon was inflated on the mesh and then circumferential tacks were placed with a SecureStrap Tacker. The balloon was then removed and inner crown was created as well. The mesh was tacked with pressure being decreased to about 8mm Hg. The 12 mm fascial defect was then closed using 0 Vicryl figure of 8. The abdomen was then desufflated and the trocars were removed. The skin was then closed using george and band- aids were placed over the incisions. The patient tolerated procedure well without any complications. She was taken to recovery room in stable condition. Anesthesia Type GET Estimated Blood Loss Estimated blood loss (mL): less than 20ml Specimens/Packing Specimens Removed hernia sac NAVIN HARPER DO Nov 24, 2021 17:51
[2021-11-24] MEDS ORDERED: HYDROcodone/APAP 5 MG/325 MG (LORTAB) TAB PO PRN (18:00)
[2021-11-24] MEDS ORDERED: ONDANSETRON 4 MG/2 ML (SDV) Z0FRAN IVP PRN ×2 (18:00)
[2021-11-24] MEDS ORDERED: HYDROmorphone 2 MG/ML VIAL (DILAUDID) IV ONE (18:00)
[2021-11-24] MEDS ORDERED: ceFAZolin 2 GM IV Premixed 50 ML IV SCH (18:00)
[2021-11-24] MEDS: KETOROLAC 30 MG/ML VIAL IVP SCH ×3 (19:59→23:52)
[2021-11-24] MEDS: LACTATED RINGERS 1,000 ML IV SCH (20:00)
[2021-11-25] MEDS ORDERED: ceFAZolin 2 GM IV Premixed 50 ML IV SCH (00:30)
[2021-11-25 00:33] VITALS: BP 124/78
[2021-11-25 03:33] VITALS: BP 118/75
[2021-11-25] MEDS: LACTATED RINGERS 1,000 ML IV SCH ×2 (04:59→06:25)
[2021-11-25] MEDS: KETOROLAC 30 MG/ML VIAL IVP SCH ×2 (06:25→12:30)
[2021-11-25] MEDS ORDERED: FLU QUADRIvalent (3YOA+) 60 mcg/0.5 ml 2021-22(AFLURIA) IM ONE (07:30)
--- NOTE | 2021-11-25 08:07 | Anesthesia-General Post-Op ---
General Patient Condition Mental Status/LOC: Same as Preop Cardiovascular: Satisfactory Nausea/Vomiting: Absent Respiratory: Satisfactory Pain: Controlled Complications: Absent Post Op Complications Complications None Follow Up Care/Instructions Patient Instructions None needed. Anesthesia/Patient Condition Patient Condition Patient is doing well, no complaints, stable vital signs, no apparent adverse anesthesia problems. No complications reported per nursing. [place] [facility] [place]: Yes NELY GILES CRNA Nov 25, 2021 08:07
[2021-11-25 08:12] VITALS: BP 116/77
[2021-11-25] MEDS ORDERED: PANTOPRAZOLE 40 MG (PROTONIX) VIAL IVP SCH (09:00)
--- NOTE | 2021-11-25 09:04 | Progress Note - Surgery ---
MIGELMICHAELA MED STUDENT 11/25/21 0904: Subjective Date Seen by a Provider: Nov 25, 2021 Time Seen by a Provider: 07:50 Subjective/Events-last exam Pt is lying in bed this morning but is easily woken. She states that she is starving and was on a liquid diet. She now has a regular diet ordered and she will be trying to eat some regular food. States that she was handling the liquids well with no nausea or vomiting. She is sore a bit this morning. States that her pain is now muscle achey in nature, a totally differnt pain than she was having yesterday. She has not had a BM or passed gas since the surgery yesterday. She has been able to walk around and use the restroom. Review of Systems General: No Chills HEENT: No Head Aches, No Visual Changes Pulmonary: No Dyspnea, No Cough Cardiovascular: No: Chest Pain, Palpitations, Edema Gastrointestinal: Abdominal Pain; No: Nausea, Vomiting, Diarrhea, Constipation, Melena Genitourinary: No Dysuria, No Incontinence, No Hematuria Musculoskeletal: No: leg pain, foot pain Objective Exam Vital Signs Date Time Temp Pulse Resp B/P (MAP) Pulse Ox O2 Delivery O2 Flow Rate FiO2 11/25/21 08:12 37.0 87 18 116/77 (90) 96 Room Air 11/25/21 03:33 36.6 76 18 118/75 (89) 97 Room Air 11/25/21 00:33 37.0 69 18 124/78 (93) 97 Room Air 11/24/21 19:39 36.1 88 22 123/65 (84) 97 Room Air 11/24/21 18:55 Room Air 11/24/21 18:50 Room Air 11/24/21 18:40 36.8 16 121/85 (97) 94 Room Air 11/24/21 18:30 16 124/91 (102) 94 Room Air 11/24/21 18:30 Room Air 11/24/21 18:20 18 136/82 (100) 100 OxyMask 2 11/24/21 18:15 OxyMask 4 11/24/21 18:10 14 131/83 (99) 100 OxyMask 4 11/24/21 18:00 14 135/84 (101) 100 OxyMask 6 11/24/21 17:50 OxyMask 8 11/24/21 17:50 37 16 125/80 (95) 100 OxyMask 8 11/24/21 16:21 76 18 115/73 97 Room Air 11/24/21 13:10 36.7 117 18 137/91 (106) 100 Room Air I & O 11/25/21 07:00 Intake Total 4650 ml Output Total 700 ml Balance 3950 ml Capillary Refill : Less Than 3 Seconds General Appearance: No Apparent Distress, WD/WN, Mild Distress HEENT: PERRL/EOMI, Pharynx Normal, Moist Mucous Membranes Respiratory: Chest Non Tender, Lungs Clear, Normal Breath Sounds, No Accessory Muscle Use, No Respiratory Distress Cardiovascular: Regular Rate, Rhythm, No Edema, No Murmur, Normal Peripheral Pulses, Tachycardia Peripheral Pulses: 2+ Dorsalis Pedis (R), 2+ Left Dors-Pedis (L), 2+ Radial Pulses (R), 2+ Radial Pulses (L) Gastrointestinal: soft, abnormal bowel sounds (hypoactive), tenderness (mild, incisional) Extremity: Normal Inspection, Non Tender, No Calf Tenderness, No Pedal Edema Neurologic/Psychiatric: Alert, Oriented x3, Normal Mood/Affect Skin: Normal Color, Warm/Dry, Other (Abdominal incision is stapled shut, no leaking or erythema noted. Healing nicely) Results Lab Laboratory Tests 11/24/21 13:13: Influenza Type A (RT-PCR) Not Detected, Influenza Type B (RT-PCR) Not Detected, SARS-CoV-2 RNA (RT-PCR) Not Detected 11/24/21 14:40: White Blood Count 11.4H, Red Blood Count 4.64, Hemoglobin 15.2, Hematocrit 44, Mean Corpuscular Volume 96, Mean Corpuscular Hemoglobin 33, Mean Corpuscular Hemoglobin Concent 34, Red Cell Distribution Width 14.2, Platelet Count 232, Mean Platelet Volume 10.8, Immature Granulocyte % (Auto) 0, Neutrophils (%) (Auto) 79H, Lymphocytes (%) (Auto) 11L, Monocytes (%) (Auto) 9, Eosinophils (%) (Auto) 1, Basophils (%) (Auto) 0, Neutrophils # (Auto) 9.0H, Lymphocytes # (Auto) 1.3, Monocytes # (Auto) 1.0, Eosinophils # (Auto) 0.1, Basophils # (Auto) 0.0, Immature Granulocyte # (Auto) 0.0, Sodium Level 134L, Potassium Level 3.6, Chloride Level 101, Carbon Dioxide Level 20L, Anion Gap 13, Blood Urea Nitrogen 11, Creatinine 0.78, Estimat Glomerular Filtration Rate 98, BUN/Creatinine Ratio 14, Glucose Level 91, Calcium Level 9.3, Corrected Calcium 9.3, Total Bilirubin 0.9, Aspartate Amino Transf (AST/SGOT) 22, Alanine Aminotransferase (ALT/SGPT) 36, Alkaline Phosphatase 89, C-Reactive Protein High Sensitivity 27.55H, Total Protein 8.3H, Albumin 4.0, Lipase 20, Serum Test, Qualitative NEGATIVE 11/24/21 15:35: Urine Color YELLOW, Urine Clarity CLEAR, Urine pH 6.5, Urine Specific [place] 1.010L, Urine Protein NEGATIVE, Urine Glucose (UA) NEGATIVE, Urine Ketones TRACEH, Urine Nitrite NEGATIVE, Urine Bilirubin NEGATIVE, Urine Urobilinogen 4.0, Urine Leukocyte Esterase NEGATIVE, Urine RBC (Auto) 1+H, Urine RBC RARE, Urine WBC RARE, Urine Squamous Epithelial Cells 2-5, Urine Crystals NONE, Urine Bacteria TRACE, Urine Casts NONE, Urine Mucus SMALLH, Urine Culture Indicated NO Assessment/Plan Assessment/Plan Assessment/Plan S/P Laparoscopic Ventral/incisional hernia repair with mesh Day 1 No new labwork or imaging this morning but patient is very energetic, no signs of fever or infection noted. Pain is well controlled and pt says she feels a lot better. Will advance her to normal diet, if she tolerates it well she should be able to go home. Is not reacquiring IV pain meds. Wound is healing very well. She asked about bathing, I told her running soapy water is fine but not to scrub incision, also to avoid bathing in sitting water, stick to showers. NAZARIO HORN DO 11/25/21 1143: Subjective Time Seen by a Provider: 10:45 Subjective/Events-last exam Pt seen and examined, tolerating diet and minimal pain mostly at midline incision. Review of Systems General: No Chills Pulmonary: No Dyspnea, No Cough Cardiovascular: No: Chest Pain, Palpitations Gastrointestinal: Abdominal Pain; No: Nausea, Vomiting Objective Exam General Appearance: WD/WN, Anxious, Other (pt rocking back and forth) Respiratory: Lungs Clear, Normal Breath Sounds, No Accessory Muscle Use Cardiovascular: Regular Rate, Rhythm, No Murmur Gastrointestinal: soft, tenderness (mild, incisional) Assessment/Plan Assessment/Plan Assessment/Plan S/P Laparoscopic Ventral/incisional hernia repair with mesh Day 1 No new labwork or imaging this morning but patient is very energetic, no signs of fever or infection noted. Pain is well controlled and pt says she feels a lot better. Will advance her to normal diet, if she tolerates it well she should be able to go home. Is not reacquiring IV pain meds. Wound is healing very well. She asked about bathing, I told her running soapy water is fine but not to scrub incision, also to avoid bathing in sitting water, stick to showers. Supervisory-Addendum Brief Verification & Attestation Participated in pt care: history, MDM, physical Personally performed: exam, history, MDM, supervision of care Care discussed with: Medical Student Procedures: n/a Results interpretation: Verified all documentation Verification and Attestation of Medical Student E/M Service A medical student performed and documented this service. I then reviewed and verified all information documented by the medical student and made modifications to such information, when appropriate. I personally performed a physical exam, medical decision making and then discussed any differences between the notes and made revisions as necessary to create one note. Nazario Horn , 11/25/21 , 11:42 MICHAELA LAINEZ MED STUDENT Nov 25, 2021 09:04 NAZARIO HORN DO Nov 25, 2021 11:43
[2021-11-25 11:36] VITALS: BP 123/74
[2021-11-25] MEDS ORDERED: ACHD5005 PO (11:46)
--- NOTE | 2021-11-25 11:50 | Discharge Inst-Surgical ---
Discharge Inst-Surgical Depart Medication/Instructions New, Converted or Re-Newed RX: Transmitted to Pharmacy Patient Instructions Follow up Appt: Make appointment for 1 week. [phone] Instructions: No lifting greater than 20 pounds. No strenuous activity. May shower in 24 hours, no tub bath or soaking. Use incentive spirometer at home as directed. No Smoking Skin/Wound Care: May remove bandages in am. You need to leave the george in place and come to the office to have them removed. Symptoms to Report: Appetite Changes, Extremity Discoloration, Numbness/Tingling, Swelling Increased, Bleeding Excessive, Eyesight Changes, Pain Increased, Urine Color Change, Constipation(Persistent), Fever over 101 degree F, Pain/Pressure in chest, Urinating Difficulty, Cough Up/Vomit Blood, Heart Beat Irreg/Pounding, Pain/Pressure in jaw, Cramps in feet or legs, Lightheadedness, Pain/Pressure in shoulder, Diarrhea(Persistent), Memory Changes Suddenly, Questions/Concerns, Weight gain consecutive days, Dizziness/Fainting, Nausea/Vomiting, Shortness of Breath, Weight gain over 2 pounds If questions or concerns contact your physician Or seek help at emergency department. Activity Activity Instructions: Avoid Stress to Incision Driving Instructions: No Driving/Refer to Diet Discharge Diet: No Restrictions Diet After 24 Hours: Clear Liquid if Nauseous If Any Problems/Questions/Issu: Contact Your Physician, Go to Emergency Room Skin/Wound Care Infection Signs and Symptoms: Increased Redness, Foul Odor of Wound, Increased Drainage, Skin Itchy or Has a Rash, Increased Swelling, Temperature Above 101 F Bathing Instructions: Shower Stitches/George/Dermabond Dis: Care of NAVIN Fraser DO Nov 25, 2021 11:50
== END 2021-11-25 13:15 | disposition home or self-care (01) ==
LOC: EDUNIT# 12:50 → ER 12:52 → SDC 16:08 → 4TH 18:53 → SDC 11-25 13:15
PROVIDERS: ATTEND Surgery
DX: K43.6 Other and unspecified ventral hernia with obstruction, without gangrene (principal); I26.99 Other pulmonary embolism without acute cor pulmonale; R45.6 Violent behavior; F31.9 Bipolar disorder, unspecified; R10.84 Generalized abdominal pain; R11.2 Nausea with vomiting, unspecified; F90.9 Attention-deficit hyperactivity disorder, unspecified type; F17.210 Nicotine dependence, cigarettes, uncomplicated; Z79.899 Other long term (current) drug therapy; Z79.01 Long term (current) use of anticoagulants; Z98.51 Tubal ligation status
CPT/HCPCS: 49655; 74177; 80053; 81000; 83690; 84703 ×2; 85025; 86141; 87636; 99285; C1781; 36415

== ENCOUNTER 2023-08-13 20:26 | Emergency (ER) | payer SELFPAY ==
[~2023-08-13 20:26] MED LIST changes: +ACHD5005 PO
== END 2023-08-13 20:48 | disposition left against medical advice (07) ==
LOC: EDUNIT# 20:26 → ER 20:32
DX: R07.89 Other chest pain (principal); R06.02 Shortness of breath

== ENCOUNTER 2023-08-14 14:19 | Emergency (ER) | payer OTHER ==
[~2023-08-14] VITALS: Ht 165 cm; Wt 70.3 kg
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
[2023-08-14] MEDS ORDERED: HYDROcodone/ACETAMINOPHEN 5 MG/325 MG TABLET PO ONE (16:45)
--- NOTE | 2023-08-14 16:49 | Diagnostic Imaging Report ---
EXAMINATION: Right ribs, 2 views. HISTORY: Rib injury. COMPARISON: None available. FINDINGS: No rib fracture is seen. The right lung is clear. No pneumothorax. IMPRESSION: No right-sided rib fracture is seen. Dictated by: Dictated on workstation # [id number]
[2023-08-14 17:00] VITALS: BP 134/67
== END 2023-08-14 17:00 | disposition home or self-care (01) ==
LOC: EDUNIT# 14:19 → ER 14:20
DX: R07.81 Pleurodynia (principal); W22.03XA Walked into furniture, initial encounter
CPT/HCPCS: 71100